=== PATIENT | male | born 1975 | race American Indian/Alaskan Native ===

== ENCOUNTER 2016-12-26 20:27 | Emergency (ER) | payer OTHER ==
[2016-12-26 21:02] VITALS: BP 190/84
[2016-12-26] MEDS ORDERED: Sodium Chloride 0.9% 1,000 ML IV ONE (21:28)
--- NOTE | 2016-12-26 21:29 | EDM.PDOC ---
ED HPI Trauma - General Chief Complaint: Lower Extremity Injury/Pain Stated Complaint: RT ANKLE/FOOT SWELLING/DIABETIC Time Seen by Provider: 12/26/16 21:23 Source: Reports: Patient History Limitations: Reports: No limitations - History of Present Illness INITIAL COMMENTS - FREE TEXT/NARRATIVE: 41 yo [place] Male c/o right lower extremity w/ swelling redness ad pain since Tuesday and Chills yesterday. PMHx. DM Symptom Onset Date: 12/24/16 Symptom Onset Time: 13:00 Occurred Where: home Method of Injury: unknown Severity: moderate Pain/Injury Location: Reports: lower extremity, right Consciousness: Reports: no loss of consciousness Associated Symptoms: Reports: other (chills) Allergies/ADRs: Allergies No Known Allergies Allergy (Verified 12/26/16 20:58) Home Medications: Ambulatory Orders Insulin Glarg,Human.Rec.Analog [LantUS Solostar] 20 units INJECT BEDTIME [Confirmed 12/26/16] atorvaSTATin [Lipitor] 1 tab PO DAILY 05/13/16 [Confirmed 12/26/16] Insulin Aspart [NovoLOG] 20 units SQ TID 12/26/16 [Confirmed 12/26/16] Metoprolol Succinate [Toprol XL] 100 mg PO DAILY 12/26/16 [Confirmed 12/26/16] Past Medical History HEENT History: Reports: None Cardiovascular History: Reports: Cardiomyopathy, High cholesterol, Hypertension , Other (see below) Other Cardiovascular History: hypertrophic cardiomyopathy Respiratory History: Reports: None Gastrointestinal History: Reports: GERD Genitourinary History: Reports: Renal calculus, Other (see below) Other Genitourinary History: "stage 3 kidney disease" Musculoskeletal History: Reports: None Neurological History: Reports: None Psychiatric History: Reports: None Endocrine/Metabolic History: Reports: Diabetes, type II Hematologic History: Reports: None Immunologic History: Reports: None Oncologic (Cancer) History: Reports: None Dermatologic History: Reports: None - Infectious Disease History Infectious Disease History: Reports: Chicken pox - Past Surgical History Head Surgeries/Procedures: Reports: None GI Surgical History: Reports: Cholecystectomy, EGD Male Surgical History: Reports: Circumcision Social & Family History - Tobacco Use Smoking Status *Q: Never Smoker Second Hand Smoke Exposure: No - Recreational Drug Use Recreational Drug Use: No Review of Systems - Review of Systems Review Of Systems: See Below Constitutional: Reports: chills Eyes: Reports: no symptoms Ears: Reports: no symptoms Nose: Reports: no symptoms Mouth/Throat: Reports: no symptoms Respiratory: Reports: No Symptoms Cardiovascular: Reports: no symptoms GI/Abdominal: Reports: No symptoms Genitourinary: Reports: no symptoms Musculoskeletal: Reports: muscle pain (right leg) Skin: Reports: erythema (with swelling and tenderness right leg) Neurological: Reports: No Symptoms Psychiatric: Reports: no symptoms Trauma Exam - Physical Exam Exam: See Below Exam Limited By: No limitations General Appearance: Reports: alert, WD/WN, no apparent distress Head: Reports: atraumatic, normocephalic Eyes: bilateral eye: EOMI Ears: Reports: normal external exam Nose: Reports: normal inspection, normal mucousa Throat/Mouth: Reports: Normal inspection, Normal lips Neck: Reports: non-tender Respiratory Exam: Reports: no respiratory distress, lungs clear, normal breath sounds Cardiovascular: Reports: normal peripheral pulses, regular rate, rhythm GI/Abdominal: Reports: normal bowel sounds, soft Extremities: Reports: no evidence of injury, other (right leg w/ swelling, redness and tenderness) 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, no motor/sensory deficits, alert , normal mood/affect, oriented x 3 Skin: Reports: Warm/dry, Other (erythematous) Course - Vital Signs Last Recorded V/S: Last Vital Signs Temp 36.4 C 12/26/16 20:52 Pulse 80 12/26/16 20:52 Resp 18 12/26/16 20:52 BP 190/84 H 12/26/16 20:52 Pulse Ox 98 12/26/16 20:52 - Orders/Labs/Meds Orders: Active Orders 24 hr Category Date Time Status PE Chest [Ang Chest] [CT] Urgent Exams 12/26/16 22:30 Stop Req CULTURE BLOOD [BC] Stat Lab 12/26/16 21:36 Received GLYCOSYLATED HEMOGLOBIN (HA1C) [REF] Stat Lab 12/26/16 21:31 Received Sodium Chloride 0.9% @ 75 MLS/HR(1000ml) Med 12/26/16 23:00 Ordered Sodium Chloride 0.9% [Normal Saline] 1,000 ml IV ASDIRECTED Medication Orders Sodium Chloride (Normal Saline) 1,000 mls @ 75 mls/hr IV ASDIRECTED JASBIR Labs: Laboratory Tests 12/26/16 12/26/16 12/26/16 Range/Units 21:31 21:31 21:31 WBC 9.4 (5.0-10.0) 10^3/uL RBC 4.27 L (4.6-6.2) 10^6/uL Hgb 12.8 L (14.0-18.0) g/dL Hct 36.6 L (40.0-54.0) % MCV 85.7 (80-100) fL MCH 30.0 (27.0-34.0) pg MCHC 35.0 (33.0-35.0) g/dL Plt Count 247 (150-450) 10^3/uL Neut % (Auto) 61.5 (42.2-75.2) % Lymph % (Auto) 21.8 (20.5-50.1) % [place] % (Auto) 13.3 H (2-8) % Eos % (Auto) 2.9 (1.0-3.0) % Baso % (Auto) 0.5 (0.0-1.0) % ESR 80 H (0-15) mm/hr D-Dimer, Quantitative 2490 H (0-400) ng/mL Sodium 133 L (135-145) mmol/L Potassium 5.4 H (3.6-5.0) mmol/L Chloride 100 L (101-111) mmol/L Carbon Dioxide 26.0 (21.0-31.0) mmol/L Anion Gap 12.4 BUN 37 H (7-18) mg/dL Creatinine 1.5 H (0.6-1.3) mg/dL Est Cr Clr Drug Dosing 85.89 mL/min Estimated GFR (MDRD) 52 BUN/Creatinine Ratio 24.66 Glucose 242 H (74-105) mg/dL Calcium 9.5 (8.4-10.2) mg/dl Total Bilirubin 1.4 H (0.2-1.0) mg/dL AST 27 (10-42) IU/L ALT 19 (10-60) IU/L Alkaline Phosphatase 62 (42-121) IU/L Total Protein 7.4 (6.7-8.2) g/dl Albumin 3.3 (3.2-5.5) g/dl Globulin 4.1 Albumin/Globulin Ratio 0.80 Meds: Medications Generic Name Dose Route Start Last Admin Trade Name Elmer PRN Reason Stop Dose Admin Sodium Chloride 1,000 mls @ 75 mls/hr 12/26/16 23:00 Normal Saline IV ASDIRECTED JASBIR Discontinued Medications Generic Name Dose Route Start Last Admin Trade Name Elmer PRN Reason Stop Dose Admin Sodium Chloride 1,000 mls @ 999 mls/hr 12/26/16 21:28 12/26/16 21:35 Normal Saline IV 12/26/16 22:28 999 mls/hr .BOLUS ONE Administration Cefazolin Sodium/Dextrose 2 gm 50 mls @ 100 mls/hr 12/26/16 22:06 12/26/16 22 :22 / Premix IV 12/26/16 22:35 100 mls/hr ONETIME ONE Administration Iopamidol 100 ml 12/26/16 22:38 Isovue-370 (76%) IVPUSH 12/26/16 22:39 ONETIME ONE Departure - Departure Time of Disposition: 23:03 (Dr. Orlando) Disposition: DC/Tfer to [facility] 02 Condition: good Clinical Impression: Cellulitis of leg without foot, right, Elevated d-dimer, CKD (chronic kidney disease) stage 3, GFR 30-59 ml/min Forms: ED Department Discharge, Interfacility Transfer EMTALA - My Orders Last 24 Hours: My Active Orders 12/26/16 21:31 GLYCOSYLATED HEMOGLOBIN (HA1C) [REF] Stat 12/26/16 21:36 CULTURE BLOOD [BC] Stat 12/26/16 22:30 PE Chest [Ang Chest] [CT] Urgent 12/26/16 23:00 Sodium Chloride 0.9% @ 75 MLS/HR(1000ml) Sodium Chloride 0.9% [Normal Saline] 1 ,000 ml IV ASDIRECTED - Assessment/Plan Last 24 Hours: My Active Orders 12/26/16 21:31 GLYCOSYLATED HEMOGLOBIN (HA1C) [REF] Stat 12/26/16 21:36 CULTURE BLOOD [BC] Stat 12/26/16 22:30 PE Chest [Ang Chest] [CT] Urgent 12/26/16 23:00 Sodium Chloride 0.9% @ 75 MLS/HR(1000ml) Sodium Chloride 0.9% [Normal Saline] 1 ,000 ml IV ASDIRECTED
[2016-12-26] MEDS ORDERED: ceFAZolin 2 GM in Premix Bag 1 BAG IV ONE (22:06)
[2016-12-26] MEDS ORDERED: Iopamidol 755 Mg/ML 100 ML Bottle IVPUSH ONE (22:38)
[2016-12-26] MEDS ORDERED: Sodium Chloride 0.9% 1,000 ML IV SCH (23:00)
--- NOTE | 2016-12-30 20:58 | EKG ---
12/26/2016 - JESSICA WARD - TIME: 2307 hours. I reviewed the EKG and agree with the machine's reading. [facility] /[id number]
== END 2016-12-26 23:34 ==
LOC: DL.ED 20:27
DX: L03.115 Cellulitis of right lower limb (principal); R79.1 Abnormal coagulation profile; I12.9 Hypertensive chronic kidney disease with stage 1 through stage 4 chronic kidney disease, or unspecified chronic kidney disease; E11.22 Type 2 diabetes mellitus with diabetic chronic kidney disease; N18.3 Chronic kidney disease, stage 3 (moderate); Z79.4 Long term (current) use of insulin; K21.9 Gastro-esophageal reflux disease without esophagitis; Z79.899 Other long term (current) drug therapy
CPT/HCPCS: 80053; 83036; 85025; 85379; 85651; 87040; 93005; 96361; 96365; 99284; J0690; J7030; 36415

== ENCOUNTER 2017-02-01 22:23 | Emergency (ER) | payer OTHER ==
[2017-02-01 23:33] VITALS: BP 127/82
--- NOTE | 2017-02-01 23:58 | EDM.PDOC ---
ED HPI GENERAL MEDICAL PROBLEM - General Chief Complaint: General Stated Complaint: TUNNEL PICLINE HURTS AND WONT FLUSH Time Seen by Provider: 02/01/17 23:53 Source of Information: Reports: Patient History Limitations: Reports: No Limitations - History of Present Illness INITIAL COMMENTS - FREE TEXT/NARRATIVE: ED with c/o unable to flush PICC line. Completed IV course and now on oral until determination if infection improved enough to remove PICC line. Diabetic , cellulitis left lower extremity. Admits heavier lifting today moving treadmill. Left Arm Pain Score (Numeric/FACES): 4 - Related Data Allergies Allergy/AdvReac Type Severity Reaction Status Date / Time No Known Allergies Allergy Verified 02/01/17 23:26 Home Meds: Home Meds Insulin Glarg,Human.Rec.Analog [LantUS Solostar] 25 units INJECT BEDTIME [History] Insulin Aspart [NovoLOG] 22 units SQ TID 12/26/16 [History] Metoprolol Succinate [Toprol XL] 100 mg PO DAILY 12/26/16 [History] Past Medical History HEENT History: Reports: None Cardiovascular History: Reports: Cardiomyopathy, High Cholesterol, Hypertension , Other (See Below) Other Cardiovascular History: hypertrophic cardiomyopathy Respiratory History: Reports: None Gastrointestinal History: Reports: GERD Genitourinary History: Reports: Renal Calculus, Other (See Below) Other Genitourinary History: "stage 3 kidney disease" Musculoskeletal History: Reports: None Neurological History: Reports: None Psychiatric History: Reports: None Endocrine/Metabolic History: Reports: Diabetes, Type II Hematologic History: Reports: None Immunologic History: Reports: None Oncologic (Cancer) History: Reports: None Dermatologic History: Reports: None - Infectious Disease History Infectious Disease History: Reports: Chicken Pox - Past Surgical History Head Surgeries/Procedures: Reports: None GI Surgical History: Reports: Cholecystectomy, EGD Social & Family History - Tobacco Use Smoking Status *Q: Unknown Ever Smoked Second Hand Smoke Exposure: No - Caffeine Use Caffeine Use: Reports: Coffee - Recreational Drug Use Recreational Drug Use: No ED ROS GENERAL - Review of Systems Review Of Systems: ROS reveals no pertinent complaints other than HPI. ED EXAM, GENERAL - Physical Exam Exam: See Below Exam Limited By: No Limitations General Appearance: Alert, No Apparent Distress Respiratory/Chest: No Respiratory Distress, Lungs Clear, Normal Breath Sounds Cardiovascular: Normal Peripheral Pulses, Regular Rate, Rhythm Neurological: Alert, Oriented, Normal Cognition, Normal Gait Course - Vital Signs Last Recorded V/S: Last Vital Signs Temp 98.0 F 02/01/17 23:29 Pulse 81 02/01/17 23:29 Resp 20 02/01/17 23:29 BP 127/82 02/01/17 23:29 Pulse Ox 98 02/01/17 23:29 - Re-Assessments/Exams Free Text/Narrative Re-Assessment/Exam: Nursing able to flush PICC line with ease. Dressing and line intact left subclavian. Departure - Departure Time of Disposition: 23:56 Disposition: Home, Self-Care 01 Condition: good Clinical Impression: PICC (peripherally inserted central catheter) in place - Discharge Information Instructions: PICC Home Guide Forms: ED Department Discharge Additional Instructions: follow up as needed no heavy lifting
== END 2017-02-02 00:05 | disposition home or self-care (01) ==
LOC: DL.ED 22:23
DX: Z45.2 Encounter for adjustment and management of vascular access device (principal)
CPT/HCPCS: 99283

== ENCOUNTER 2017-02-04 16:48 | Emergency (ER) | payer OTHER ==
[2017-02-04] MEDS ORDERED: Sodium Chloride 0.9% 10 ML Syringe FLUSH PRN (17:20)
[2017-02-04] MEDS ORDERED: Aspirin 81 MG Tab.Chew PO ONE (17:21)
[2017-02-04] MEDS ORDERED: GI Cocktail Oral Solution 30 ML PO ONE (17:22)
--- NOTE | 2017-02-04 17:29 | EDM.PDOC ---
{null, ED HPI GENERAL MEDICAL PROBLEM - General Chief Complaint: Cardiovascular Problem Stated Complaint: BP HIGH Time Seen by Provider: 02/04/17 17:15 Source of Information: Reports: Patient History Limitations: Reports: No Limitations - History of Present Illness INITIAL COMMENTS - FREE TEXT/NARRATIVE: patient comes emergency Department today with complaints of chest pressure that is midsternal and goes into his back that has been going on for the past 2-3 hours. He did note this morning that he was diaphoretic for no reason. While he was at the gym this evening and developed this chest pressure they checked his blood pressure and noted that it was quite elevated systolically in the 190s. The pain in his chest feels like bloating burping sensation and indigestion that he has had in the past. He denies any shortness of breath cough or chest congestion. He denies any fever or chills. Denies any abdominal pain nausea or vomiting. He does have a cellulitis of the right lower extremity which he has been receiving outpatient IV antibiotic therapy and has recently switched over to oral antibiotics for the cellulitis is much improved. He does note that his left lower ankle is more swollen than it typically has been. He does have a history of hypertrophic cardiomyopathy as well as diabetes. - Related Data Allergies Allergy/AdvReac Type Severity Reaction Status Date / Time No Known Allergies Allergy Verified 02/04/17 17:16 Home Meds: Home Meds Insulin Glarg,Human.Rec.Analog [LantUS Solostar] 25 units INJECT BEDTIME [History] Insulin Aspart [NovoLOG] 22 units SQ TID 12/26/16 [History] Metoprolol Succinate [Toprol XL] 100 mg PO DAILY 12/26/16 [History] Losartan/Hydrochlorothiazide [Losartan-HCTZ 100-25 MG] 1 each PO DAILY 02/04/17 [History] Ranitidine [Zantac] 150 mg PO BID 02/04/17 [History] atorvaSTATin [Lipitor] 20 mg PO BEDTIME 02/04/17 [History] Past Medical History HEENT History: Reports: None Cardiovascular History: Reports: Cardiomyopathy, High Cholesterol, Hypertension , Other (See Below) Other Cardiovascular History: hypertrophic cardiomyopathy Respiratory History: Reports: None Gastrointestinal History: Reports: GERD Genitourinary History: Reports: Renal Calculus, Other (See Below) Other Genitourinary History: "stage 3 kidney disease" Musculoskeletal History: Reports: None Neurological History: Reports: None Psychiatric History: Reports: None Endocrine/Metabolic History: Reports: Diabetes, Type II Hematologic History: Reports: None Immunologic History: Reports: None Oncologic (Cancer) History: Reports: None Dermatologic History: Reports: None - Infectious Disease History Infectious Disease History: Reports: Chicken Pox - Past Surgical History Head Surgeries/Procedures: Reports: None GI Surgical History: Reports: Cholecystectomy, EGD Social & Family History - Tobacco Use Smoking Status *Q: Never Smoker Second Hand Smoke Exposure: No - Caffeine Use Caffeine Use: Reports: Coffee - Recreational Drug Use Recreational Drug Use: No ED ROS GENERAL - Review of Systems Review Of Systems: ROS reveals no pertinent complaints other than HPI. ED EXAM, GENERAL - Physical Exam Exam: See Below Exam Limited By: Altered Mental Status General Appearance: Alert, WD/WN, No Apparent Distress Ears: Normal External Exam, Normal Canal, Hearing Grossly Normal, Normal TMs Nose: Normal Inspection, Normal Mucosa, No Blood Throat/Mouth: Normal Inspection, Normal Lips, Normal Oropharynx Head: Atraumatic, Normocephalic Neck: Normal Inspection, Supple, Non-Tender Respiratory/Chest: No Respiratory Distress, Lungs Clear, Normal Breath Sounds, No Accessory Muscle Use Cardiovascular: Normal Peripheral Pulses, Regular Rate, Rhythm, No JVD, No Murmur Peripheral Pulses: 2+: Radial (L), Radial (R), Posterior Tibial (L), Posterior Tibial (R), Dorsalis Pedis (L), Dorsalis Pedis (R) GI/Abdominal: Normal Bowel Sounds, Soft, Non-Tender, No Distention, No Abnormal Bruit (Male) Exam: Deferred Rectal (Males) Exam: Deferred Back Exam: Normal Inspection Extremities: Normal Inspection, Normal Range of Motion, Non-Tender, Normal Capillary Refill, Pedal Edema (Left extremity lower 1+ pitting edema. 2+ pitting edema to the right lower extremity.). No: Rd's Sign, Leg Pain, Increased Warmth Neurological: Alert, CN II-XII Intact, Normal Cognition, Normal Reflexes, No Motor/Sensory Deficits Psychiatric: Normal Affect Skin Exam: Warm, Dry, Intact, Normal Color Lymphatic: No Adenopathy EKG INTERPRETATION EKG Date: 02/04/17 Time: 17:14 Rhythm: NSR Rate (beats/min): 68 [place]: normal P-wave: present QRS: LBBB ST-T: normal QT: normal Comparison: no change Course - Vital Signs Last Recorded V/S: Last Vital Signs Temp 36.8 C 02/04/17 20:22 Pulse 69 02/04/17 20:22 Resp 16 02/04/17 20:22 BP 163/90 H 02/04/17 20:22 Pulse Ox 98 02/04/17 20:22 Vital Signs 02/04/17 02/04/17 02/04/17 17:17 18:28 19:36 Temperature [ 36.3 C 36.5 C 36.8 C Temporal] Pulse, 68 70 66 Peripheral [ Apical] Respiratory 18 15 16 Rate Blood Pressure 186/96 H 149/97 H 167/91 H [Right Upper Arm] O2 Sat by Pulse 99 100 100 Oximetry 02/04/17 02/04/17 02/04/17 19:50 20:03 20:22 Temperature [ 36.8 C 36.8 C 36.8 C Temporal] Pulse, 65 65 69 Peripheral [ Apical] Respiratory 16 16 16 Rate Blood Pressure 168/92 H 165/91 H 163/90 H [Right Upper Arm] O2 Sat by Pulse 99 98 98 Oximetry - Orders/Labs/Meds Orders: Active Orders 24 hr Category Date Time Status EKG 12 Lead [EKG Documentation Completion] [RC] URGENT Care 02/04/17 17:20 Active Peripheral IV Care [RC] . DIRECTED Care 02/04/17 17:20 Active TROPONIN I [CHEM] Stat Lab 02/04/17 20:25 Received Sodium Chloride 0.9% [Saline Flush] Med 02/04/17 17:20 Active 10 ml FLUSH ASDIRECTED PRN Peripheral IV Insertion Adult [OM.PC] Stat Oth 02/04/17 17:20 Ordered Medication Orders Sodium Chloride (Saline Flush) 10 ml FLUSH ASDIRECTED PRN PRN Reason: Keep Vein Open Last Admin: 02/04/17 17:28 Dose: 10 ml Labs: Laboratory Tests 02/04/17 02/04/17 Range/Units 17:12 17:12 WBC 7.7 (5.0-10.0) 10^3/uL RBC 4.29 L (4.6-6.2) 10^6/uL Hgb 12.9 L (14.0-18.0) g/dL Hct 38.3 L (40.0-54.0) % MCV 89.3 (80-100) fL MCH 30.1 (27.0-34.0) pg MCHC 33.7 (33.0-35.0) g/dL Plt Count 364 (150-450) 10^3/uL Neut % (Auto) 56.5 (42.2-75.2) % Lymph % (Auto) 28.1 (20.5-50.1) % [place] % (Auto) 11.2 H (2-8) % Eos % (Auto) 3.3 H (1.0-3.0) % Baso % (Auto) 0.9 (0.0-1.0) % Sodium 132 L (135-145) mmol/L Potassium 4.8 (3.6-5.0) mmol/L Chloride 100 L (101-111) mmol/L Carbon Dioxide 26.0 (21.0-31.0) mmol/L Anion Gap 10.8 BUN 29 H (7-18) mg/dL Creatinine 1.6 H (0.6-1.3) mg/dL Est Cr Clr Drug Dosing 80.52 mL/min Estimated GFR (MDRD) 48 BUN/Creatinine Ratio 18.12 Glucose 137 H (74-105) mg/dL Calcium 9.3 (8.4-10.2) mg/dl Total Bilirubin 0.7 (0.2-1.0) mg/dL AST 30 (10-42) IU/L ALT 51 (10-60) IU/L Alkaline Phosphatase 97 (42-121) IU/L Troponin I 0.02 (0.00-0.02) ng/ml B-Natriuretic Peptide 174 H (0-100) pg/ml Total Protein 7.7 (6.7-8.2) g/dl Albumin 3.6 (3.2-5.5) g/dl Globulin 4.1 Albumin/Globulin Ratio 0.88 Meds: Medications Generic Name Dose Route Start Last Admin Trade Name Freq PRN Reason Stop Dose Admin Sodium Chloride 10 ml 02/04/17 17:20 02/04/17 17:28 Saline Flush FLUSH 10 ml ASDIRECTED PRN Administration Keep Vein Open Discontinued Medications Generic Name Dose Route Start Last Admin Trade Name Freq PRN Reason Stop Dose Admin Al Hydroxide/Mg Hydroxide 30 ml 02/04/17 17:22 02/04/17 17:28 Gi Cocktail PO 02/04/17 17:23 30 ml ONETIME ONE Administration Aspirin 324 mg 02/04/17 17:21 02/04/17 17:27 Aspirin PO 02/04/17 17:22 324 mg ONETIME ONE Administration - Radiology Interpretation Free Text/Narrative:: Chest x-ray unremarkable per radiology although there is a loop in the left subclavian central line. - Re-Assessments/Exams Free Text/Narrative Re-Assessment/Exam: 02/04/17 324 of oral aspirin chewable given upon arrival. GI cocktail with complete resolution of symptoms. I relayed to the patient that the findings of his EKG are unchanged from previous and his chest x-ray is unremarkable as well other than the loop in the central line which he is planning to have removed his primary care office earlier next week. At this time his troponin is normal as well as his pro BNP. He continues to tell me that he does have a kind of dry hacking cough over the past couple months it is noted primarily more on the days when he ends up with heartburn or indigestion. He does use [id number] antacids such as TUMS 2- 3 times a week for indigestion. I did explain to him that it appears most likely that this is indigestion or heartburn at this time with resolution with a GI cocktail although with his rather extensive comorbid past history and his pain is limiting going on for a short period of time I believe that a repeat troponin would be most appropriate at this time to ensure that this is not a cardiac event. He was agreeable to this. He was observed on the inpatient floor has an extended emergency department by the nursing staff. He rested comfortably without any chest pain shortness of breath or any complaints whatsoever. Repeat troponin was 0.02 which was the same as his initial troponin. We will use [id number] antacids for acute relief of indigestion and Prilosec short course as well. Discharge instructions as below were explained to the patient he is comfortable with this plan and his questions were answered Departure - Departure Time of Disposition: 21:09 Disposition: Home, Self-Care 01 Clinical Impression: GERD (gastroesophageal reflux disease) Qualifiers: Esophagitis presence: esophagitis presence not specified Qualified Code(s): K21.9 - Gastro-esophageal reflux disease without esophagitis Instructions: Gastroesophageal Reflux Disease, Adult, [id number] Forms: ED Department Discharge Additional Instructions: OTC antacids such as Maalox Mylanta Tums or Pepcid as needed for indigestion. If indigestion/Chest pressure you were having today does not resolve rapidly with OTC antacids as above seed emergent medical evaluation. Prilosec 1 capsule a day for 14 days. Return to the ED if new or worsening symptoms. Recheck primary care in the next 4-6 days. - My Orders Last 24 Hours: My Active Orders 02/04/17 17:20 EKG 12 Lead [EKG Documentation Completion] [RC] URGENT Peripheral IV Care [RC] . DIRECTED Sodium Chloride 0.9% [Saline Flush] 10 ml FLUSH ASDIRECTED PRN Peripheral IV Insertion Adult [OM.PC] Stat 02/04/17 20:25 TROPONIN I [CHEM] Stat - Assessment/Plan Last 24 Hours: My Active Orders 02/04/17 17:20 EKG 12 Lead [EKG Documentation Completion] [RC] URGENT Peripheral IV Care [RC] . DIRECTED Sodium Chloride 0.9% [Saline Flush] 10 ml FLUSH ASDIRECTED PRN Peripheral IV Insertion Adult [OM.PC] Stat 02/04/17 20:25 TROPONIN I [CHEM] Stat Assessment:: Chest pain negative cardiac workup. GERD. Plan: OTC antacids such as Maalox Mylanta Tums or Pepcid as needed for indigestion. If indigestion/Chest pressure you were having today does not resolve rapidly with OTC antacids as above seed emergent medical evaluation. Prilosec 1 capsule a day for 14 days. Return to the ED if new or worsening symptoms. Recheck primary care in the next 4-6 days. }
[2017-02-04 20:23] VITALS: BP 163/90
--- NOTE | 2017-02-08 11:12 | EKG ---
{null, 02/04/2017 - JESSICA WARD - 12-lead EKG shows normal sinus rhythm with no significant ST elevation or ST depression noted on this 12-lead EKG. Left bundle-branch block noted. Nonspecific ST changes noted on lead V2, V3. [facility] /[id number] }
== END 2017-02-04 21:28 | disposition home or self-care (01) ==
LOC: DL.ED 16:48
DX: K21.9 Gastro-esophageal reflux disease without esophagitis (principal); E78.00 Pure hypercholesterolemia, unspecified; E11.9 Type 2 diabetes mellitus without complications; I12.9 Hypertensive chronic kidney disease with stage 1 through stage 4 chronic kidney disease, or unspecified chronic kidney disease; N18.3 Chronic kidney disease, stage 3 (moderate); Z90.49 Acquired absence of other specified parts of digestive tract; Z79.4 Long term (current) use of insulin; Z79.899 Other long term (current) drug therapy
CPT/HCPCS: 36415; 71020; 80053; 83880; 84484; 85025; 93005; 99285; A9270; J7050

== ENCOUNTER 2017-04-05 00:49 | Emergency (ER) | payer OTHER ==
[2017-04-05] MEDS ORDERED: Aspirin 81 MG Tab.Chew PO ONE (01:08)
[2017-04-05] MEDS ORDERED: Albuterol 0.083% 2.5 MG/3 ML Neb Soln NEB ONE (01:09)
--- NOTE | 2017-04-05 01:32 | EDM.PDOC ---
ED HPI GENERAL MEDICAL PROBLEM - General Chief Complaint: Chest Pain Stated Complaint: TIGHTNESS IN CHEST, TROUBLE BREATHING Time Seen by Provider: 04/05/17 01:01 Source of Information: Reports: Patient History Limitations: Reports: No Limitations - History of Present Illness INITIAL COMMENTS - FREE TEXT/NARRATIVE: ED with c/o SOB starting suddenly at 2350 tonight. No pain, No recent URI, Non smoker, Traveling yesterday 3-4 without getting out of car, notes increased Onset: Today, Sudden Onset Time: 23:50 Improves with: Reports: Other (sitting up right) - Related Data Allergies Allergy/AdvReac Type Severity Reaction Status Date / Time No Known Allergies Allergy Verified 04/05/17 01:02 Home Meds: Home Meds Insulin Glarg,Human.Rec.Analog [LantUS Solostar] 25 units INJECT BEDTIME [History] Insulin Aspart [NovoLOG] 22 units SQ TID 12/26/16 [History] Metoprolol Succinate [Toprol XL] 100 mg PO DAILY 12/26/16 [History] Losartan/Hydrochlorothiazide [Losartan-HCTZ 100-25 MG] 1 each PO DAILY 02/04/17 [History] Ranitidine [Zantac] 150 mg PO BID 02/04/17 [History] atorvaSTATin [Lipitor] 20 mg PO BEDTIME 02/04/17 [History] Past Medical History HEENT History: Reports: None Cardiovascular History: Reports: Cardiomyopathy, High Cholesterol, Hypertension , Other (See Below) Other Cardiovascular History: hypertrophic cardiomyopathy Respiratory History: Reports: None Gastrointestinal History: Reports: GERD Genitourinary History: Reports: Renal Calculus, Other (See Below) Other Genitourinary History: "stage 3 kidney disease" Musculoskeletal History: Reports: None Neurological History: Reports: None Psychiatric History: Reports: None Endocrine/Metabolic History: Reports: Diabetes, Type II Hematologic History: Reports: None Immunologic History: Reports: None Oncologic (Cancer) History: Reports: None Dermatologic History: Reports: None - Infectious Disease History Infectious Disease History: Reports: Chicken Pox - Past Surgical History Head Surgeries/Procedures: Reports: None GI Surgical History: Reports: Cholecystectomy, EGD Social & Family History - Tobacco Use Smoking Status *Q: Never Smoker Second Hand Smoke Exposure: No - Caffeine Use Caffeine Use: Reports: Coffee - Recreational Drug Use Recreational Drug Use: No ED ROS GENERAL - Review of Systems Review Of Systems: See Below Constitutional: Denies: Fever, Chills, Weakness HEENT: Reports: No Symptoms, Glasses Respiratory: Reports: Shortness of Breath. Denies: Wheezing, Pleuritic Chest Pain, Cough Cardiovascular: Reports: Dyspnea on Exertion, Orthopnea Endocrine: Reports: No Symptoms GI/Abdominal: Reports: No Symptoms Musculoskeletal: Reports: Other (right leg appears more swollen tonight- hx cellulitis) Neurological: Reports: No Symptoms Psychiatric: Reports: No Symptoms ED EXAM, GENERAL - Physical Exam Exam: See Below Exam Limited By: No Limitations General Appearance: Alert, Anxious, Mild Distress, Obese Eye Exam: Bilateral Eye: EOMI Ears: Normal External Exam Nose: Normal Inspection Throat/Mouth: Normal Inspection Head: Atraumatic, Normocephalic Neck: Normal Inspection, Full Range of Motion Respiratory/Chest: Chest Non-Tender, Respiratory Distress (mild), Decreased Breath Sounds (right), Other (sats 92%RA on arrival). No: Rhonchi, Wheezing Cardiovascular: Normal Peripheral Pulses, Regular Rate, Rhythm GI/Abdominal: Normal Bowel Sounds, Soft (round) Back Exam: Normal Inspection Extremities: Other (edema lower right). No: Rd's Sign, Increased Warmth Neurological: Alert, Oriented, Normal Cognition, Normal Gait Psychiatric: Normal Affect Skin Exam: Warm, Dry, Intact, Normal Color. No: Erythema Course - Vital Signs Last Recorded V/S: Last Vital Signs Temp 97.5 F 04/05/17 01:02 Pulse 78 04/05/17 01:02 Resp 16 04/05/17 01:02 BP 120/71 04/05/17 01:57 Pulse Ox 93 L 04/05/17 01:06 - Orders/Labs/Meds Orders: Active Orders 24 hr Category Date Time Status EKG Documentation Completion [RC] URGENT Care 04/05/17 00:56 Active RT Aerosol Therapy [RC] ASDIRECTED Care 04/05/17 01:10 Active Labs: Laboratory Tests 04/05/17 04/05/17 04/05/17 Range/Units 01:00 01:00 01:00 WBC 9.0 (5.0-10.0) 10^3/uL RBC 4.23 L (4.6-6.2) 10^6/uL Hgb 12.8 L (14.0-18.0) g/dL Hct 38.1 L (40.0-54.0) % MCV 90.1 (80-100) fL MCH 30.3 (27.0-34.0) pg MCHC 33.6 (33.0-35.0) g/dL Plt Count 333 (150-450) 10^3/uL Neut % (Auto) 60.3 (42.2-75.2) % Lymph % (Auto) 25.1 (20.5-50.1) % Gaston % (Auto) 9.7 H (2-8) % Eos % (Auto) 4.2 H (1.0-3.0) % Baso % (Auto) 0.7 (0.0-1.0) % PT (9.0-12.0) SEC INR (0.9-1.2) D-Dimer, Quantitative 2600 H (0-400) ng/mL Sodium 140 (135-145) mmol/L Potassium 4.9 (3.6-5.0) mmol/L Chloride 105 (101-111) mmol/L Carbon Dioxide 27.0 (21.0-31.0) mmol/L Anion Gap 12.9 BUN 37 H (7-18) mg/dL Creatinine 1.6 H (0.6-1.3) mg/dL Est Cr Clr Drug Dosing 80.52 mL/min Estimated GFR (MDRD) 48 BUN/Creatinine Ratio 23.12 Glucose 133 H (74-105) mg/dL Calcium 9.2 (8.4-10.2) mg/dl Total Bilirubin 0.7 (0.2-1.0) mg/dL AST 34 (10-42) IU/L ALT 55 (10-60) IU/L Alkaline Phosphatase 106 (42-121) IU/L CK-MB (CK-2) (0.4-4.7) ng/mL Troponin I 0.03 H* (0.00-0.02) ng/ml B-Natriuretic Peptide 147 H (0-100) pg/ml Total Protein 7.4 (6.7-8.2) g/dl Albumin 3.5 (3.2-5.5) g/dl Globulin 3.9 Albumin/Globulin Ratio 0.90 Amylase 44 (28-100) U/L Lipase 42 (22-51) U/L 04/05/17 04/05/17 Range/Units 01:00 01:00 WBC (5.0-10.0) 10^3/uL RBC (4.6-6.2) 10^6/uL Hgb (14.0-18.0) g/dL Hct (40.0-54.0) % MCV (80-100) fL MCH (27.0-34.0) pg MCHC (33.0-35.0) g/dL Plt Count (150-450) 10^3/uL Neut % (Auto) (42.2-75.2) % Lymph % (Auto) (20.5-50.1) % Gaston % (Auto) (2-8) % Eos % (Auto) (1.0-3.0) % Baso % (Auto) (0.0-1.0) % PT 9.3 (9.0-12.0) SEC INR 0.9 (0.9-1.2) D-Dimer, Quantitative (0-400) ng/mL Sodium (135-145) mmol/L Potassium (3.6-5.0) mmol/L Chloride (101-111) mmol/L Carbon Dioxide (21.0-31.0) mmol/L Anion Gap BUN (7-18) mg/dL Creatinine (0.6-1.3) mg/dL Est Cr Clr Drug Dosing mL/min Estimated GFR (MDRD) BUN/Creatinine Ratio Glucose (74-105) mg/dL Calcium (8.4-10.2) mg/dl Total Bilirubin (0.2-1.0) mg/dL AST (10-42) IU/L ALT (10-60) IU/L Alkaline Phosphatase (42-121) IU/L CK-MB (CK-2) 10.90 H (0.4-4.7) ng/mL Troponin I (0.00-0.02) ng/ml B-Natriuretic Peptide (0-100) pg/ml Total Protein (6.7-8.2) g/dl Albumin (3.2-5.5) g/dl Globulin Albumin/Globulin Ratio Amylase (28-100) U/L Lipase (22-51) U/L Meds: Medications Discontinued Medications Generic Name Dose Route Start Last Admin Trade Name Freq PRN Reason Stop Dose Admin Albuterol 2.5 mg 04/05/17 01:09 04/05/17 01:12 Proventil Neb Soln NEB 04/05/17 01:10 2.5 mg ONETIME ONE Administration Aspirin 324 mg 04/05/17 01:08 04/05/17 01:10 Aspirin PO 04/05/17 01:09 324 mg ONETIME ONE Administration Heparin Sodium (Porcine) 5,000 units 04/05/17 01:46 04/05/17 01:59 Heparin Sodium IVPUSH 04/05/17 01:47 5,000 units ONETIME ONE Administration Heparin Sodium/Dextrose 25,000 units in 500 mls @ 35.925 mls/hr 04/05/17 02: 00 04/05/17 02:01 Heparin 25,000 Units In D5w 500 Ml IV 12 units/kg/hr TITRATE JASBIR 35.925 mls/hr Protocol Administration 12 UNITS/KG/HR Nitroglycerin 0.4 mg 04/05/17 01:42 04/05/17 01:44 Nitrostat SL 04/05/17 01:43 0.4 mg ONETIME ONE Administration Nitroglycerin Confirm 04/05/17 01:43 04/05/17 01:57 Nitrostat Administered 04/05/17 01:44 Not Given Dose 0.4 mg .ROUTE .[facility] ONE - Radiology Interpretation Free Text/Narrative:: CXR: Normal - Re-Assessments/Exams Free Text/Narrative Re-Assessment/Exam: 04/05/17 02:06 O2 sats dropping, oxygen per cannula increased. Labs returned with elevated Troponin and D-dimer. Heparin initiated. Patient c/o lower bilateral rib and back pain. Nitro x1 given with complete relief of pain. TC consult Dr. Franco, accepting of patient for further evaluation and mangement. Tx via [facility]. Departure - Departure Time of Disposition: 02:15 Disposition: DC/Tfer to Acute Hospital 02 Condition: Undetermined Clinical Impression: D-dimer, elevated, NSTEMI (non-ST elevated myocardial infarction), CKD ( chronic kidney disease) stage 3, GFR 30-59 ml/min Diabetes Qualifiers: Diabetes mellitus type: type 2 Diabetes mellitus complication status: with unspecified complications Diabetes mellitus long term care pharmacist insulin use: unspecified long term care pharmacist insulin use status Qualified Code(s): E11.8 - Type 2 diabetes mellitus with unspecified complications - Discharge Information Referrals: PCP,Unobtain [Primary Care Provider] - Forms: ED Department Discharge - My Orders Last 24 Hours: My Active Orders 04/05/17 00:56 EKG Documentation Completion [RC] URGENT 04/05/17 01:10 RT Aerosol Therapy [RC] ASDIRECTED - Assessment/Plan Last 24 Hours: My Active Orders 04/05/17 00:56 EKG Documentation Completion [RC] URGENT 04/05/17 01:10 RT Aerosol Therapy [RC] ASDIRECTED
[2017-04-05] MEDS ORDERED: Nitroglycerin 0.4 MG Tab.SL SL ONE (01:42)
[2017-04-05] MEDS ORDERED: Nitroglycerin 0.4 MG Tab.SL ONE (01:43)
[2017-04-05] MEDS ORDERED: Heparin Sodium 5,000 Units/ML Vial IVPUSH ONE (01:46)
[2017-04-05 01:57] VITALS: BP 120/71
[2017-04-05] MEDS ORDERED: Heparin Sodium/D5W 25,000 UNITS/500 ML BAG IV SCH (02:00)
--- NOTE | 2017-04-05 19:03 | EKG ---
04/05/2017 - JESSICA WARD I have reviewed the EKG and agree with the machine's reading. [facility] /[id number]
== END 2017-04-05 02:40 ==
LOC: DL.ED 00:49
DX: I21.4 Non-ST elevation (NSTEMI) myocardial infarction (principal); R79.89 Other specified abnormal findings of blood chemistry; E11.22 Type 2 diabetes mellitus with diabetic chronic kidney disease; I12.9 Hypertensive chronic kidney disease with stage 1 through stage 4 chronic kidney disease, or unspecified chronic kidney disease; N18.3 Chronic kidney disease, stage 3 (moderate); K21.9 Gastro-esophageal reflux disease without esophagitis; E78.00 Pure hypercholesterolemia, unspecified; Z79.4 Long term (current) use of insulin; Z90.49 Acquired absence of other specified parts of digestive tract; Z79.899 Other long term (current) drug therapy
CPT/HCPCS: 36415; 71010; 80053; 82150; 82553; 83690; 83880; 84484; 85025; 85379; 85610; 93005; 96365; 96376; 99285; A9270; J1644; J7620

== ENCOUNTER 2017-05-06 16:23 | Inpatient (IN) | payer OTHER ==
[2017-05-06] MEDS ORDERED: Vancomycin 1.75 GM in Sodium Chloride 0.9% 500 ML IV ONE (18:03)
--- NOTE | 2017-05-06 18:14 | EDM.PDOC ---
ED HPI GENERAL MEDICAL PROBLEM - General Chief Complaint: Lower Extremity Injury/Pain Stated Complaint: HX OF BAD INFECTIONS, ANKLE INFECTED, [id number] Time Seen by Provider: 05/06/17 17:30 Source of Information: Reports: Patient History Limitations: Reports: No Limitations - History of Present Illness INITIAL COMMENTS - FREE TEXT/NARRATIVE: This 41 yo male patient reports to the ED with increased pain, swelling and redness on a wound on his right medial maleolus. The patient reports he was seen by podiatry 4 days ago and was supposed to start on Augmentin. The patient took the first dose this this afternoon, but he has been feeling worse throughout the day. The patient has a past history of diabetes, cardiac issues, kidney failure and numerous infections in his ankle. Onset: Today, Gradual Duration: Constant, Getting Worse Location: Reports: Lower Extremity, Right Quality: Reports: Ache, Dull Severity: Moderate Improves with: Reports: None Worsens with: Reports: None Associated Symptoms: Reports: No Other Symptoms Generalized Pain Score (Numeric/FACES): 8 - Related Data Allergies Allergy/AdvReac Type Severity Reaction Status Date / Time cefepime Allergy Liver Verified 05/06/17 18:35 Problems Home Meds: Home Meds Insulin Glarg,Human.Rec.Analog [LantUS Solostar] 25 units INJECT BEDTIME [History] Insulin Aspart [NovoLOG] 22 units SQ TID 12/26/16 [History] Metoprolol Succinate [Toprol XL] 100 mg PO DAILY 12/26/16 [History] Losartan/Hydrochlorothiazide [Losartan-HCTZ 100-25 MG] 1 each PO DAILY 02/04/17 [History] Ranitidine [Zantac] 150 mg PO BID 02/04/17 [History] atorvaSTATin [Lipitor] 20 mg PO BEDTIME 02/04/17 [History] Allopurinol [Zyloprim] 100 mg PO DAILY 05/06/17 [History] Amoxicillin/Clavulanate K [Augmentin 875 MG/125 MG] 1 mg PO BID 05/06/17 [ History] Spironolactone [Aldactone] 12.5 mg PO DAILY 05/06/17 [History] Past Medical History HEENT History: Reports: None Cardiovascular History: Reports: Cardiomyopathy, High Cholesterol, Hypertension , Other (See Below) Other Cardiovascular History: hypertrophic cardiomyopathy Respiratory History: Reports: None Gastrointestinal History: Reports: GERD Genitourinary History: Reports: Renal Calculus, Other (See Below) Other Genitourinary History: "stage 3 kidney disease" Musculoskeletal History: Reports: Gout, Osteoarthritis Neurological History: Reports: None Psychiatric History: Reports: None Endocrine/Metabolic History: Reports: Diabetes, Type II Hematologic History: Reports: None Immunologic History: Reports: None Oncologic (Cancer) History: Reports: None Dermatologic History: Reports: None - Infectious Disease History Infectious Disease History: Reports: Chicken Pox, MRSA - Past Surgical History Head Surgeries/Procedures: Reports: None GI Surgical History: Reports: Cholecystectomy, EGD Social & Family History - Family History Family Medical History: Noncontributory - Tobacco Use Smoking Status *Q: Never Smoker Second Hand Smoke Exposure: No - Caffeine Use Caffeine Use: Reports: Coffee - Recreational Drug Use Recreational Drug Use: No Review of Systems - Review of Systems Review Of Systems: ROS reveals no pertinent complaints other than HPI. ED EXAM, GENERAL - Physical Exam Exam: See Below Exam Limited By: No Limitations General Appearance: Alert, WD/WN, Moderate Distress Eye Exam: Bilateral Eye: EOMI, Normal Inspection, PERRL Ears: Normal External Exam, Normal Canal, Hearing Grossly Normal, Normal TMs Nose: Normal Inspection, Normal Mucosa, No Blood Throat/Mouth: Normal Inspection, Normal Lips, Normal Teeth, Normal Gums, Normal Oropharynx, Normal Voice, No Airway Compromise Head: Atraumatic, Normocephalic Neck: Normal Inspection, Supple, Non-Tender, Full Range of Motion Respiratory/Chest: No Respiratory Distress, Lungs Clear, Normal Breath Sounds, No Accessory Muscle Use, Chest Non-Tender Cardiovascular: Normal Peripheral Pulses, Regular Rate, Rhythm, No Edema, No Gallop, No JVD, No Murmur, No Rub GI/Abdominal: Normal Bowel Sounds, Soft, Non-Tender, No Organomegaly, No Distention, No Abnormal Bruit, No Mass (Male) Exam: Deferred Rectal (Males) Exam: Deferred Back Exam: Normal Inspection, Full Range of Motion, NT Extremities: Redness (right medial maleoli) Neurological: Alert, Oriented, CN II-XII Intact, Normal Cognition, Normal Gait, Normal Reflexes, No Motor/Sensory Deficits Psychiatric: Normal Affect, Normal Mood Skin Exam: Erythema, Wound/Incision Lymphatic: No Adenopathy Course - Vital Signs Last Recorded V/S: Last Vital Signs Temp 38.2 C H 05/06/17 18:52 Pulse 87 05/06/17 18:52 Resp 20 05/06/17 18:52 BP 155/85 H 05/06/17 18:52 Pulse Ox 97 05/06/17 18:52 - Orders/Labs/Meds Orders: Active Orders 24 hr Category Date Time Status CULTURE BLOOD [BC] Stat Lab 05/06/17 17:07 Received CULTURE BLOOD [BC] Stat Lab 05/06/17 17:11 Received Vancomycin 1.75 gm Med 05/06/17 18:03 Ordered Sodium Chloride 0.9% [Normal Saline] 500 ml IV ONETIME Blood Culture x2 Reflex Set [OM.PC] Stat Oth 05/06/17 16:57 Ordered Medication Orders Vancomycin HCl 1.75 gm/ Sodium (Chloride) 500 mls @ 250 mls/hr IV ONETIME ONE Stop: 05/06/17 20:02 Last Admin: 05/06/17 18:14 Dose: 334 mls/hr Labs: Laboratory Tests 05/06/17 05/06/17 05/06/17 Range/Units 16:47 17:07 17:07 WBC 8.2 (5.0-10.0) 10^3/uL RBC 4.22 L (4.6-6.2) 10^6/uL Hgb 12.6 L (14.0-18.0) g/dL Hct 37.2 L (40.0-54.0) % MCV 88.2 (80-100) fL MCH 29.9 (27.0-34.0) pg MCHC 33.9 (33.0-35.0) g/dL Plt Count 271 (150-450) 10^3/uL Neut % (Auto) 79.1 H (42.2-75.2) % Lymph % (Auto) 9.6 L (20.5-50.1) % Taylor % (Auto) 9.2 H (2-8) % Eos % (Auto) 1.5 (1.0-3.0) % Baso % (Auto) 0.6 (0.0-1.0) % Sodium 136 (135-145) mmol/L Potassium 4.9 (3.6-5.0) mmol/L Chloride 101 (101-111) mmol/L Carbon Dioxide 25.0 (21.0-31.0) mmol/L Anion Gap 14.9 BUN 39 H (7-18) mg/dL Creatinine 2.0 H (0.6-1.3) mg/dL Est Cr Clr Drug Dosing 64.42 mL/min Estimated GFR (MDRD) 37 BUN/Creatinine Ratio 19.50 Glucose 167 H (74-105) mg/dL POC Glucose 160 H (70-105) mg/dl Lactic Acid (0.5-2.2) mmol/L Calcium 9.6 (8.4-10.2) mg/dl Total Bilirubin 0.9 (0.2-1.0) mg/dL AST 34 (10-42) IU/L ALT 38 (10-60) IU/L Alkaline Phosphatase 90 (42-121) IU/L Total Protein 7.7 (6.7-8.2) g/dl Albumin 3.4 (3.2-5.5) g/dl Globulin 4.3 Albumin/Globulin Ratio 0.79 08/18/17 Range/Units 17:07 WBC (5.0-10.0) 10^3/uL RBC (4.6-6.2) 10^6/uL Hgb (14.0-18.0) g/dL Hct (40.0-54.0) % MCV (80-100) fL MCH (27.0-34.0) pg MCHC (33.0-35.0) g/dL Plt Count (150-450) 10^3/uL Neut % (Auto) (42.2-75.2) % Lymph % (Auto) (20.5-50.1) % Taylor % (Auto) (2-8) % Eos % (Auto) (1.0-3.0) % Baso % (Auto) (0.0-1.0) % Sodium (135-145) mmol/L Potassium (3.6-5.0) mmol/L Chloride (101-111) mmol/L Carbon Dioxide (21.0-31.0) mmol/L Anion Gap BUN (7-18) mg/dL Creatinine (0.6-1.3) mg/dL Est Cr Clr Drug Dosing mL/min Estimated GFR (MDRD) BUN/Creatinine Ratio Glucose (74-105) mg/dL POC Glucose (70-105) mg/dl Lactic Acid 0.8 (0.5-2.2) mmol/L Calcium (8.4-10.2) mg/dl Total Bilirubin (0.2-1.0) mg/dL AST (10-42) IU/L ALT (10-60) IU/L Alkaline Phosphatase (42-121) IU/L Total Protein (6.7-8.2) g/dl Albumin (3.2-5.5) g/dl Globulin Albumin/Globulin Ratio Meds: Medications Generic Name Dose Route Start Last Admin Trade Name Freq PRN Reason Stop Dose Admin Vancomycin HCl 1.75 gm/ Sodium 500 mls @ 250 mls/hr 05/06/17 18:03 05/06/17 18:14 Chloride IV 05/06/17 20:02 334 mls/hr ONETIME ONE Administration Departure - Departure Time of Disposition: 18:11 Disposition: Admitted As Inpatient 66 Condition: Fair Clinical Impression: Cellulitis Qualifiers: Site of cellulitis: extremity Site of cellulitis of extremity: lower extremity Laterality: right Qualified Code(s): L03.115 - Cellulitis of right lower limb - Discharge Information Referrals: PCP,None [Primary Care Provider] - Forms: ED Department Discharge Care Plan Goals: Discussed the examination, history and lab results with Dr. Mishra. Dr. Mishra accepted the patient for continued evaluation and management. The patient was started on a Vanco drip (1.75 grams every 12 hours) while in the ED. - My Orders Last 24 Hours: My Active Orders 05/06/17 16:57 Blood Culture x2 Reflex Set [OM.PC] Stat 05/06/17 17:07 CULTURE BLOOD [BC] Stat 05/06/17 17:11 CULTURE BLOOD [BC] Stat 05/06/17 18:03 Vancomycin 1.75 gm Sodium Chloride 0.9% [Normal Saline] 500 ml IV ONETIME - Assessment/Plan Last 24 Hours: My Active Orders 05/06/17 16:57 Blood Culture x2 Reflex Set [OM.PC] Stat 05/06/17 17:07 CULTURE BLOOD [BC] Stat 05/06/17 17:11 CULTURE BLOOD [BC] Stat 05/06/17 18:03 Vancomycin 1.75 gm Sodium Chloride 0.9% [Normal Saline] 500 ml IV ONETIME
--- NOTE | 2017-05-06 19:10 | PCM.HP ---
H&P History of Present Illness - General Date of Service: 05/06/17 Admit Problem/Dx: Cellulitis of the RT Foot Source of Information: Patient - History of Present Illness Initial Comments - Free Text/Narative: Mr. Peters is a 41 y.o male who has a past medical history of chronic kidney disease stage III with proteinuria, since 2011 with baseline serum creatinine around 1.41.8 mg/dL, diabetes mellitus for 10 years with about 700 mg albuminuria in 2014, microscopic hematuria since 2014 hypertension which is resistant but was ~controlled. He was admitted in December 2016.with Acute right lower extremity cellulitis and was started on IV Zyvox with improvement in the symptoms. Today he came to ED with increased pain, swelling and redness on a wound on his right medial maleolus.He was seen by podiatry on after the MRI was done at [facility]. The pt was supposed to start on Augmentin. The patient took the first dose this this afternoon, but he has been feeling worse throughout the day. He had MRI of the Rt ankle on 04/26/17 and the finding was : 1. ~Tenosynovitis of the peroneus and flexor tendons without tear. 2. ~Mild to moderate scattered bone marrow edema throughout the bones of the midfoot hindfoot and ankle. This is nonspecific and most worrisome for mechanical stress although some of this may be related to arthritic change. Degenerative changes of the right foot and ankle. 3. ~Small complex joint effusion of the tibiotalar articulation suspicious for synovitis. 4. ~Plantar fasciitis with large plantar calcaneal spur. 5. ~Diffuse soft tissue edema. 6. ~Talonavicular subluxation. Pes planus. There may be mild subluxation of the tibiotalar articulation. No ruel involvement and recommended continuation of Abx ( Augmentin) . His creatinine has also increased from base line, creatinine today was at 2.0 mg/dl Onset of Symptoms: Reports: Gradual Duration of Symptoms: Reports: Getting Worse Location: Reports: Lower Extremity, Right Quality: Reports: Dull Generalized Pain Score (Numeric/FACES): 8 - Related Data Allergies/Adverse Reactions: Allergies Allergy/AdvReac Type Severity Reaction Status Date / Time cefepime Allergy Liver Verified 05/06/17 18:35 Problems Home Medications: Home Meds Insulin Glarg,Human.Rec.Analog [LantUS Solostar] 25 units INJECT BEDTIME [History] Insulin Aspart [NovoLOG] 22 units SQ TID 12/26/16 [History] Metoprolol Succinate [Toprol XL] 100 mg PO DAILY 12/26/16 [History] Losartan/Hydrochlorothiazide [Losartan-HCTZ 100-25 MG] 1 each PO DAILY 02/04/17 [History] Ranitidine [Zantac] 150 mg PO BID 02/04/17 [History] atorvaSTATin [Lipitor] 20 mg PO BEDTIME 02/04/17 [History] Allopurinol [Zyloprim] 100 mg PO DAILY 05/06/17 [History] Amoxicillin/Clavulanate K [Augmentin 875 MG/125 MG] 1 mg PO BID 05/06/17 [ History] Chlorthalidone 25 mg PO DAILY 05/06/17 [History] Cholecalciferol (Vitamin D3) [Vitamin D] 1,000 units PO DAILY 05/06/17 [History] Sildenafil [Viagra] 100 mg PO ASDIRECTED PRN 05/06/17 [History] Spironolactone [Aldactone] 12.5 mg PO DAILY 05/06/17 [History] amLODIPine [Norvasc] 10 mg PO DAILY 05/06/17 [History] Past Medical History HEENT History: Reports: None Cardiovascular History: Reports: Cardiomyopathy, High Cholesterol, Hypertension , Other (See Below) Other Cardiovascular History: hypertrophic cardiomyopathy Respiratory History: Reports: None Gastrointestinal History: Reports: GERD Genitourinary History: Reports: Renal Calculus, Other (See Below) Other Genitourinary History: "stage 3 kidney disease" Musculoskeletal History: Reports: Gout, Osteoarthritis Neurological History: Reports: None Psychiatric History: Reports: None Endocrine/Metabolic History: Reports: Diabetes, Type II Hematologic History: Reports: None Immunologic History: Reports: None Oncologic (Cancer) History: Reports: None Dermatologic History: Reports: None - Infectious Disease History Infectious Disease History: Reports: Chicken Pox, MRSA - Past Surgical History Head Surgeries/Procedures: Reports: None GI Surgical History: Reports: Cholecystectomy, EGD Social & Family History - Family History Family Medical History: Noncontributory - Tobacco Use Smoking Status *Q: Never Smoker Second Hand Smoke Exposure: No - Caffeine Use Caffeine Use: Reports: Coffee - Recreational Drug Use Recreational Drug Use: No H&P Review of Systems - Review of Systems: Review Of Systems: See Below General: Denies: Fever, Chills, Weakness, Weight Loss, Weight Gain HEENT: Denies: Dysphasia, Post Nasal Drip, Sinus Congestion, Sore Throat Pulmonary: Denies: Shortness of Breath, Wheezing, Pleuritic Chest Pain, Cough, Sputum Cardiovascular: Denies: Chest Pain, Orthopnea, Claudication Gastrointestinal: Denies: Abdominal Pain, Constipation, Diarrhea, Nausea, Vomiting Genitourinary: Denies: Dysuria, Frequency, Burning, Urgency Musculoskeletal: Reports: Foot Pain, Joint Swelling, Other (Rt Medial ankle ). Denies: Shoulder Pain, Back Pain Skin: Reports: Erythema, Wound (rt medial ankle ) Psychiatric: Denies: Confusion, Anxiety, Hallucinations Neurological: Denies: Confusion, Headache, Numbness Hematologic/Lymphatic: Reports: No Symptoms Immunologic: Reports: No Symptoms Exam - Exam Exam: See Below - Vital Signs Vital Signs: Last Vital Signs Temp 38.2 C H 05/06/17 18:52 Pulse 87 05/06/17 18:52 Resp 20 05/06/17 18:52 BP 155/85 H 05/06/17 18:52 Pulse Ox 97 05/06/17 18:52 Weight: 148.795 kg - Exam Quality Assessment: DVT Prophylaxis, Skin Breakdown. No: Supplemental Oxygen, Urinary Catheter General: Alert, Oriented, Cooperative HEENT: Conjunctiva Clear, EOMI, Hearing Intact, Posterior Pharynx Clear, Pupils Equal, Pupils Reactive Neck: Supple. No: Lymphadenopathy, JVD, Thyromegaly Lungs: Clear to Auscultation, Normal Respiratory Effort. No: Crackles, Wheezing Cardiovascular: Regular Rate, Regular Rhythm, Normal S1, Normal S2 GI/Abdominal Exam: Normal Bowel Sounds, Soft, Non-Tender, No Organomegaly. No: Guarding, Rebound, Splenomegaly (Male) Exam: Deferred Rectal (Males) Exam: Deferred Back Exam: Normal Inspection, Full Range of Motion Extremities: Joint Swelling (rt medial ankle), Increased Warmth (Rt Medial ankle ). No: No Pedal Edema Skin: Warm, Dry, Intact Neurological: Cranial Nerves Intact, Reflexes Equal Bilateral Neuro Extensive - Mental Status: Oriented x3, Normal Mood/Affect, Normal Cognition Neuro Extensive - Motor, Sensory, Reflexes: CN II-XII Intact, Normal Gait, Normal Reflexes Psychiatric: Alert, Normal Affect, Normal Mood - Patient Data Result Diagrams: 05/06/17 17:07 05/06/17 17:07 *Q Meaningful Use (ADM) - VTE *Q VTE Criteria *Q: - Stroke *Q Stroke Criteria *Q: - AMI *Q AMI Criteria *Q: - Problem List (1) HTN (hypertension) SNOMED Code(s): 00459999 ICD Code: I10 - ESSENTIAL (PRIMARY) HYPERTENSION Status: Acute Current Visit: Yes (2) CKD (chronic kidney disease) stage 3, GFR 30-59 ml/min SNOMED Code(s): 619039177 ICD Code: N18.3 - CHRONIC KIDNEY DISEASE, STAGE 3 (MODERATE) Status: Acute Current Visit: No (3) Cellulitis of leg without foot, right SNOMED Code(s): 855311715 ICD Code: L03.115 - CELLULITIS OF RIGHT LOWER LIMB Status: Acute Current Visit: No (4) Diabetes SNOMED Code(s): 61806092 ICD Code: E11.9 - TYPE 2 DIABETES MELLITUS WITHOUT COMPLICATIONS Status: Acute Current Visit: No Qualifiers: Diabetes mellitus type: type 2 Diabetes mellitus complication status: with unspecified complications Diabetes mellitus alf insulin use: unspecified alf insulin use status Qualified Code(s): E11.8 - Type 2 diabetes mellitus with unspecified complications Problem List Initiated/Reviewed/Updated: Yes Orders Last 24hrs: Medication Orders Vancomycin HCl 1.75 gm/ Sodium (Chloride) 500 mls @ 250 mls/hr IV ONETIME ONE Stop: 05/06/17 20:02 Last Admin: 05/06/17 18:14 Dose: 334 mls/hr Assessment/Plan Comment:: This is a pleasant 41 y/O Moderately obese Male with poorly controlled diabetes admitted with increased pain, swelling and redness on a wound on his right medial maleolus with drainage 1. Right Medial maleoluar Cellulitis: This issue has been going on for some time and the pt was seen by Podiatry on 05/02 and MRI on 04/26/17 showed no Ostemyelitis -Will start him on Zosyn and Vancomycin, pharmacy to follow the level of Vancomycin -Will get wound culture and also blood culture -Wound dressing wet to dry 2. Hypertension: Bp acceptable and will continue Amlodipine, Chlorthalidone and Metoprolol -Will hold HCTZ-Cozaar combination Medication 3. CKD starge III: This is from Diabetes and HTN, base line creatinine 1.6-1.8 mg/dl and there is acute rise in creatinine -Will cohold cozaar 4. Diabetes II: He is on Lantus and regular Insulin , will continue at the same dose with Blood sugar check qid 5. Dyslipidemia: Continue Lipitor 20 mg daily 6. GI prophylaxis: Continue protonicx 40 mg daily 7, DVT prophylaxis: Continue Heparin 5000 units TID 8. Code status: Full code
[2017-05-06] MEDS ORDERED: Acetaminophen 325 MG Tab PO PRN (19:57)
[2017-05-06] MEDS ORDERED: Docusate Sodium 100 MG Cap PO PRN (19:57)
[2017-05-06] MEDS ORDERED: Piperacillin/Tazobactam 3.375 GM in Sodium Chloride 0.9% 100 ML IV SCH (20:00)
[2017-05-06] MEDS ORDERED: Insulin Aspart 100 Units/ML 3 ML Pen SUBCUT SCH (21:00)
[2017-05-06] MEDS ORDERED: Famotidine 20 MG Tab PO SCH (21:00)
[2017-05-06] MEDS ORDERED: INSULIN GLARG HUMAN REC ANALOG INJECT SCH (21:00)
[2017-05-06] MEDS ORDERED: [UNRECOGNIZED DRUG - OTHER] INJECT SCH (21:00)
[2017-05-06] MEDS: Insulin Detemir 100 Units/ML 3 ML Pen SUBCUT SCH (22:00)
[2017-05-07] MEDS: Piperacillin/Tazobactam 3.375 GM in Sodium Chloride 0.9% 100 ML IV SCH ×4 (04:10→22:36)
[2017-05-07] MEDS: Famotidine 20 MG Tab PO SCH ×2 (05:57→17:34)
[2017-05-07] MEDS: Vancomycin 1.75 GM in Sodium Chloride 0.9% 500 ML IV SCH ×2 (05:57→17:23)
[2017-05-07] MEDS: Insulin Aspart 100 Units/ML 3 ML Pen SUBCUT SCH ×3 (09:48→17:27)
[2017-05-07] MEDS: Allopurinol 100 MG Tab PO SCH (09:49)
[2017-05-07] MEDS: Metoprolol Succinate 50 MG Tab.ER PO SCH (09:49)
[2017-05-07] MEDS: Chlorthalidone 25 MG Tab PO SCH (09:50)
[2017-05-07] MEDS: amLODIPine 5 MG Tab PO SCH (09:50)
[2017-05-07] MEDS: Spironolactone 25 MG Tab PO SCH (09:50)
--- NOTE | 2017-05-07 11:13 | PCM.PN ---
- General Info Date of Service: 05/07/17 Admission Dx/Problem (Free Text): Admitted with : Cellulitis of the RT Foot ( Medial Maleous) Subjective Update: Pt feels better today, No pain, No fever or Chill, No nausea or vomiting. appetite is good, ambulating and No BM for 2 days. Functional Status: Reports: Pain Controlled, Tolerating Diet, Ambulating, Urinating - Review of Systems General: Reports: Appetite (good). Denies: Fever, Malaise, Chills HEENT: Denies: Headaches, Sinus Congestion, Sore Throat, Visual Changes Pulmonary: Denies: Shortness of Breath, Pleuritic Chest Pain, Cough, Sputum, Wheezing Cardiovascular: Denies: Chest Pain, Dyspnea on Exertion, Lightheadedness Gastrointestinal: Reports: Constipation, Diarrhea. Denies: Abdominal Pain, Nausea, Vomiting Genitourinary: Denies: Dysuria, Burning, Urgency, Flank Pain Musculoskeletal: Reports: Joint Pain (rt foot ( Mild)). Denies: Neck Pain, Shoulder Pain Skin: Denies: Jaundice, Dryness, Bruising, Pruritis, Rash Neurological: Denies: Confusion, Dizziness, Tingling, Tremors Psychiatric: Denies: Confusion, Anxiety - Patient Data Vitals - Most Recent: Last Vital Signs Temp 36.8 C 05/07/17 07:42 Pulse 81 05/07/17 09:49 Resp 20 05/07/17 07:42 BP 128/77 05/07/17 09:50 Pulse Ox 99 05/07/17 07:42 Weight - Most Recent: 148.795 kg Lab Results Last 24 Hours: Laboratory Results - last 24 hr 05/06/17 05/07/17 05/07/17 Range/Units 20:58 06:06 07:52 Sodium 139 (135-145) mmol/L Potassium 4.5 (3.6-5.0) mmol/L Chloride 104 (101-111) mmol/L Carbon Dioxide 26.0 (21.0-31.0) mmol/L Anion Gap 13.5 BUN 34 H (7-18) mg/dL Creatinine 1.9 H (0.6-1.3) mg/dL Est Cr Clr Drug Dosing 67.81 mL/min Estimated GFR (MDRD) 39 Glucose 163 H (74-105) mg/dL POC Glucose 137 H 156 H (70-105) mg/dl Calcium 9.3 (8.4-10.2) mg/dl Med Orders - Current: Current Medications Acetaminophen (Tylenol) 650 mg PO Q4H PRN PRN Reason: Pain (mild 1-3 )/fever Last Admin: 05/06/17 22:08 Dose: 650 mg Allopurinol (Zyloprim) 100 mg PO DAILY [facility] Last Admin: 05/07/17 09:49 Dose: 100 mg Amlodipine Besylate (Norvasc) 10 mg PO DAILY [facility] Last Admin: 05/07/17 09:50 Dose: 10 mg Atorvastatin Calcium (Lipitor) 20 mg PO BEDTIME JASBIR Chlorthalidone (Chlorthalidone) 25 mg PO DAILY [facility] Last Admin: 05/07/17 09:50 Dose: 25 mg Docusate Sodium (Colace) 100 mg PO DAILY PRN PRN Reason: Constipation Famotidine (Pepcid) 20 mg PO BIDAC [facility] Last Admin: 05/07/17 05:57 Dose: 20 mg Vancomycin HCl 1.75 gm/ Sodium (Chloride) 500 mls @ 250 mls/hr IV Q12H [facility] Last Admin: 05/07/17 05:57 Dose: 250 mls/hr Piperacillin Sod/Tazobactam (Sod 3.375 gm/ Sodium Chloride) 100 mls @ 200 mls/ hr IV Q6H [facility] Last Admin: 05/07/17 09:53 Dose: 200 mls/hr Insulin Aspart (Novolog) 22 unit SUBCUT TIDMEALS [facility] Last Admin: 05/07/17 09:48 Dose: 22 units Insulin Detemir (Levemir) 25 unit SUBCUT BEDTIME [facility] Last Admin: 05/06/17 22:00 Dose: 25 units Metoprolol Succinate (Toprol Xl) 100 mg PO DAILY [facility] Last Admin: 05/07/17 09:49 Dose: 100 mg Spironolactone (Aldactone) 12.5 mg PO DAILY [facility] Last Admin: 05/07/17 09:50 Dose: 12.5 mg Vancomycin HCl (Pharmacy To Dose - Vancomycin) 1 dose .XX ASDIRECTED [facility] Discontinued Medications Famotidine (Pepcid) 20 mg PO BID [facility] Last Admin: 05/06/17 21:41 Dose: Not Given Vancomycin HCl 1.75 gm/ Sodium (Chloride) 500 mls @ 250 mls/hr IV ONETIME ONE Stop: 05/06/17 20:02 Last Admin: 05/06/17 18:14 Dose: 334 mls/hr Piperacillin Sod/Tazobactam (Sod 3.375 gm/ Sodium Chloride) 100 mls @ 200 mls/ hr IV Q6H [facility] Last Admin: 05/06/17 22:00 Dose: 200 mls/hr Insulin Aspart (Novolog) 22 unit SUBCUT TID [facility] Last Admin: 05/06/17 21:37 Dose: Not Given Non-Formulary Medication (Insulin Glarg,Human.Rec.Analog [Lantus Solostar]) 25 units INJECT BEDTIME JASBIR - Exam Quality Assessment: DVT Prophylaxis. No: Supplemental Oxygen, Urine Catheter General: Alert, Oriented, Cooperative, No Acute Distress HEENT: Pupils Equal, EOMI, Mucous Membr. Moist/Brainard Neck: Supple, No JVD, No Thyromegaly. No: Lymphadenopathy Lungs: Clear to Auscultation, Normal Respiratory Effort. No: Crackles, Wheezing Cardiovascular: Regular Rate, Regular Rhythm GI/Abdominal Exam: Normal Bowel Sounds, Soft, No Distention. No: Guarding, Rebound (Male) Exam: Deferred Back Exam: Normal Inspection, Full Range of Motion Extremities: Normal Inspection, No Pedal Edema, Other (Rt medial aspect of ankel had draining wound with dry dressing) Skin: Warm, Dry, Intact Wound/Incisions: Erythema Improving, Other (dry dressing to the wound) Neurological: No New Focal Deficit, Normal Gait, Normal Speech Psy/Mental Status: Alert, Normal Affect, Normal Mood - Problem List & Annotations (1) HTN (hypertension) SNOMED Code(s): 06604821 Code(s): I10 - ESSENTIAL (PRIMARY) HYPERTENSION Status: Acute Current Visit: Yes (2) CKD (chronic kidney disease) stage 3, GFR 30-59 ml/min SNOMED Code(s): 283993308 Code(s): N18.3 - CHRONIC KIDNEY DISEASE, STAGE 3 (MODERATE) Status: Acute Current Visit: No (3) Cellulitis of leg without foot, right SNOMED Code(s): 854817249 Code(s): L03.115 - CELLULITIS OF RIGHT LOWER LIMB Status: Acute Current Visit: No (4) Diabetes SNOMED Code(s): 04791419 Code(s): E11.9 - TYPE 2 DIABETES MELLITUS WITHOUT COMPLICATIONS Status: Acute Current Visit: No Qualifiers: Diabetes mellitus type: type 2 Diabetes mellitus complication status: with unspecified complications Diabetes mellitus mcc insulin use: unspecified middle or intermediate [employer] principal insulin use status Qualified Code(s): E11.8 - Type 2 diabetes mellitus with unspecified complications - Problem List Review Problem List Initiated/Reviewed/Updated: Yes - My Orders Last 24 Hours: My Active Orders 05/06/17 20:15 Vancomycin Pharmacy to Dose [Pharmacy to Dose - Vancomycin] 1 dose .XX ASDIRECTED 05/06/17 21:00 Insulin Detemir [Levemir] 25 unit SUBCUT BEDTIME 05/06/17 Dinner Consistent Carbohydrate Diet [DIET] 05/07/17 04:00 Piperacillin/Tazobactam [Zosyn] 3.375 gm Sodium Chloride 0.9% [Normal Saline] 100 ml IV Q6H 05/07/17 06:00 Famotidine [Pepcid] 20 mg PO BIDAC Vancomycin 1.75 gm Sodium Chloride 0.9% [Normal Saline] 500 ml IV Q12H 05/07/17 08:00 Insulin Aspart [NovoLOG] 22 unit SUBCUT TIDMEALS 05/07/17 09:00 Allopurinol [Zyloprim] 100 mg PO DAILY Chlorthalidone 25 mg PO DAILY Metoprolol Succinate [Toprol XL] 100 mg PO DAILY Spironolactone [Aldactone] 12.5 mg PO DAILY amLODIPine [Norvasc] 10 mg PO DAILY 05/07/17 21:00 atorvaSTATin [Lipitor] 20 mg PO BEDTIME - Plan Plan:: This is a pleasant 41 y/O Moderately obese Male with poorly controlled diabetes admitted with increased pain, swelling and redness of a wound on his right medial maleolus with drainage 1. Right Medial maleoluar Cellulitis: This issue has been going on for some time and the pt was seen by Podiatry on 05/02 and MRI on 04/26/17 showed no Ostemyelitis -Will continue him on Zosyn and Vancomycin, pharmacy to follow the level of Vancomycin -Will follow wound culture and also blood culture ( no growth so far) -Continue Wound dressing wet to dry 2. Hypertension: Bp acceptable and will continue Amlodipine, Chlorthalidone and Metoprolol -Will continue to hold HCTZ-Cozaar combination Medication 3. CKD starge III: This is from Diabetes and HTN, base line creatinine 1.6-1.8 mg/dl and there is acute rise in creatinine -Will continue hold cozaar, renal function is at the base line 4. Diabetes II: He is on Lantus and regular Insulin , will continue at the same dose with Blood sugar check qid 5. Dyslipidemia: Continue Lipitor 20 mg daily 6. GI prophylaxis: Continue Pepcid 20 mg BID 7, DVT prophylaxis: Continue Heparin 5000 units TID 8. Code status: Full code
[2017-05-07] MEDS: Insulin Detemir 100 Units/ML 3 ML Pen SUBCUT SCH (22:30)
[2017-05-07] MEDS: atorvaSTATin 20 MG Tab PO SCH (22:41)
[2017-05-08] MEDS: Piperacillin/Tazobactam 3.375 GM in Sodium Chloride 0.9% 100 ML IV SCH ×4 (03:59→21:44)
[2017-05-08] MEDS ORDERED: Vancomycin 1 GM SDV ONE (04:54)
[2017-05-08] MEDS: Vancomycin 1.75 GM in Sodium Chloride 0.9% 500 ML IV SCH (05:32)
[2017-05-08] MEDS: Famotidine 20 MG Tab PO SCH ×2 (05:41→17:10)
[2017-05-08] MEDS: Insulin Aspart 100 Units/ML 3 ML Pen SUBCUT SCH ×3 (08:45→17:34)
[2017-05-08] MEDS: Chlorthalidone 25 MG Tab PO SCH (08:56)
[2017-05-08] MEDS: Metoprolol Succinate 50 MG Tab.ER PO SCH (08:57)
[2017-05-08] MEDS: Spironolactone 25 MG Tab PO SCH (08:58)
[2017-05-08] MEDS: amLODIPine 5 MG Tab PO SCH (08:59)
[2017-05-08] MEDS: Allopurinol 100 MG Tab PO SCH (08:59)
--- NOTE | 2017-05-08 14:06 | PCM.PN ---
- General Info Date of Service: 05/08/17 Admission Dx/Problem (Free Text): Admitted with : Cellulitis of the RT Foot ( Medial Maleous) Subjective Update: Pt feels better today, No pain, No fever or Chill, No nausea or vomiting. appetite is good, ambulating and had BM today. Functional Status: Reports: Pain Controlled, Tolerating Diet, Ambulating, Urinating - Review of Systems General: Reports: Appetite (good). Denies: Fever, Chills HEENT: Denies: Headaches, Sinus Congestion, Sore Throat, Visual Changes Pulmonary: Denies: Shortness of Breath, Cough, Wheezing Cardiovascular: Denies: Chest Pain, Dyspnea on Exertion, Lightheadedness Gastrointestinal: Denies: Abdominal Pain, Diarrhea, Melena, Nausea, Vomiting Genitourinary: Denies: Dysuria, Frequency, Burning, Urgency, Flank Pain Musculoskeletal: Denies: Shoulder Pain, Leg Pain, Joint Pain Skin: Denies: Cyanosis, Bruising, Pruritis, Rash Neurological: Denies: Headache, Tingling, Tremors Psychiatric: Denies: Confusion, Anxiety - Patient Data Vitals - Most Recent: Last Vital Signs Temp 36.7 C 05/08/17 11:54 Pulse 73 05/08/17 11:54 Resp 20 05/08/17 11:54 BP 167/81 H 05/08/17 11:54 Pulse Ox 98 05/08/17 11:54 Weight - Most Recent: 148.795 kg I&O - Last 24 Hours: Intake & Output 05/07/17 05/08/17 05/08/17 22:59 06:59 14:59 Intake Total 1100 840 350 Balance 1100 840 350 Lab Results Last 24 Hours: Laboratory Results - last 24 hr 05/07/17 05/07/17 05/08/17 Range/Units 16:53 20:59 07:49 POC Glucose 127 H 103 133 H (70-105) mg/dl 05/08/17 Range/Units 11:04 POC Glucose 194 H (70-105) mg/dl Med Orders - Current: Current Medications Acetaminophen (Tylenol) 650 mg PO Q4H PRN PRN Reason: Pain (mild 1-3 )/fever Last Admin: 05/06/17 22:08 Dose: 650 mg Allopurinol (Zyloprim) 100 mg PO DAILY JASBIR Last Admin: 05/08/17 08:59 Dose: 100 mg Amlodipine Besylate (Norvasc) 10 mg PO DAILY [facility] Last Admin: 05/08/17 08:59 Dose: 10 mg Atorvastatin Calcium (Lipitor) 20 mg PO BEDTIME [facility] Last Admin: 05/07/17 22:41 Dose: 20 mg Chlorthalidone (Chlorthalidone) 25 mg PO DAILY [facility] Last Admin: 05/08/17 08:56 Dose: 25 mg Docusate Sodium (Colace) 100 mg PO DAILY PRN PRN Reason: Constipation Famotidine (Pepcid) 20 mg PO BIDAC [facility] Last Admin: 05/08/17 05:41 Dose: 20 mg Vancomycin HCl 1.75 gm/ Sodium (Chloride) 500 mls @ 250 mls/hr IV Q12H [facility] Last Admin: 05/08/17 05:32 Dose: 250 mls/hr Piperacillin Sod/Tazobactam (Sod 3.375 gm/ Sodium Chloride) 100 mls @ 200 mls/ hr IV Q6H [facility] Last Infusion: 05/08/17 11:28 Dose: Infused Insulin Aspart (Novolog) 22 unit SUBCUT TIDMEALS [facility] Last Admin: 05/08/17 12:30 Dose: 22 units Insulin Detemir (Levemir) 25 unit SUBCUT BEDTIME [facility] Last Admin: 05/07/17 22:30 Dose: 25 units Metoprolol Succinate (Toprol Xl) 100 mg PO DAILY [facility] Last Admin: 05/08/17 08:57 Dose: 100 mg Spironolactone (Aldactone) 12.5 mg PO DAILY [facility] Last Admin: 05/08/17 08:58 Dose: 12.5 mg Vancomycin HCl (Pharmacy To Dose - Vancomycin) 1 dose .XX ASDIRECTED [facility] Discontinued Medications Famotidine (Pepcid) 20 mg PO BID [facility] Last Admin: 05/06/17 21:41 Dose: Not Given Vancomycin HCl 1.75 gm/ Sodium (Chloride) 500 mls @ 250 mls/hr IV ONETIME ONE Stop: 05/06/17 20:02 Last Admin: 05/06/17 18:14 Dose: 334 mls/hr Piperacillin Sod/Tazobactam (Sod 3.375 gm/ Sodium Chloride) 100 mls @ 200 mls/ hr IV Q6H [facility] Last Admin: 05/06/17 22:00 Dose: 200 mls/hr Insulin Aspart (Novolog) 22 unit SUBCUT TID [facility] Last Admin: 05/06/17 21:37 Dose: Not Given Non-Formulary Medication (Insulin Glarg,Human.Rec.Analog [Lantus Solostar]) 25 units INJECT BEDTIME [facility] Vancomycin HCl (Vancomycin) Confirm Administered Dose 2 gm .ROUTE .STK-MED ONE Stop: 05/08/17 04:55 Last Admin: 05/08/17 05:39 Dose: Not Given - Exam Quality Assessment: DVT Prophylaxis. No: Supplemental Oxygen, Urine Catheter General: Alert, Oriented, Cooperative, No Acute Distress HEENT: Pupils Equal, EOMI, Mucous Membr. Moist/[place] Neck: Supple. No: No JVD, Lymphadenopathy Lungs: Clear to Auscultation, Normal Respiratory Effort. No: Rales, Wheezing Cardiovascular: Regular Rate, Regular Rhythm GI/Abdominal Exam: Normal Bowel Sounds, Soft, Non-Tender, No Distention. No: Guarding, Rebound (Male) Exam: Deferred Back Exam: Normal Inspection, Full Range of Motion Extremities: Normal Inspection, Normal Range of Motion, No Pedal Edema Skin: Warm, Dry, Intact Wound/Incisions: Healing Well Neurological: No New Focal Deficit Psy/Mental Status: Alert, Normal Affect, Normal Mood - Problem List & Annotations (1) HTN (hypertension) SNOMED Code(s): 10920631 Code(s): I10 - ESSENTIAL (PRIMARY) HYPERTENSION Status: Acute Current Visit: Yes (2) CKD (chronic kidney disease) stage 3, GFR 30-59 ml/min SNOMED Code(s): 126306818 Code(s): N18.3 - CHRONIC KIDNEY DISEASE, STAGE 3 (MODERATE) Status: Acute Current Visit: No (3) Cellulitis of leg without foot, right SNOMED Code(s): 435180266 Code(s): L03.115 - CELLULITIS OF RIGHT LOWER LIMB Status: Acute Current Visit: No (4) Diabetes SNOMED Code(s): 46242989 Code(s): E11.9 - TYPE 2 DIABETES MELLITUS WITHOUT COMPLICATIONS Status: Acute Current Visit: No Qualifiers: Diabetes mellitus type: type 2 Diabetes mellitus complication status: with unspecified complications Diabetes mellitus extermination inspector insulin use: unspecified extermination inspector insulin use status Qualified Code(s): E11.8 - Type 2 diabetes mellitus with unspecified complications - Problem List Review Problem List Initiated/Reviewed/Updated: Yes - My Orders Last 24 Hours: My Active Orders 05/07/17 18:12 Blood Glucose Check, Bedside [] QIDACANDBED 05/07/17 21:00 atorvaSTATin [Lipitor] 20 mg PO BEDTIME - Plan Plan:: This is a pleasant 41 y/O Moderately obese Male with poorly controlled diabetes admitted with increased pain, swelling and redness of a wound on his right medial maleolus with drainage 1. Right Medial maleoluar Cellulitis: This issue has been going on for some time and the pt was seen by Podiatry on 05/02 and MRI on 04/26/17 showed no Ostemyelitis -Will continue him on Zosyn and Vancomycin, pharmacy to follow the level of Vancomycin -Will follow wound culture and also blood culture ( wound culture Beta Hemolytic strep- ID and sensitivity pending) -Continue Wound dressing wet to dry 2. Hypertension: Bp acceptable and will continue Amlodipine, Chlorthalidone and Metoprolol -Will continue to hold HCTZ-Cozaar combination Medication 3. CKD starge III: This is from Diabetes and HTN, base line creatinine 1.6-1.8 mg/dl and there is acute rise in creatinine -Will continue hold cozaar, renal function is at the base line 4. Diabetes II: He is on Lantus and regular Insulin , continue Blood sugar check qid 5. Dyslipidemia: Continue Lipitor 20 mg daily 6. GI prophylaxis: Continue Pepcid 20 mg BID 7, DVT prophylaxis: Continue Heparin 5000 units TID 8. Code status: Full code
[2017-05-08] MEDS: atorvaSTATin 20 MG Tab PO SCH (20:27)
[2017-05-08] MEDS: Insulin Detemir 100 Units/ML 3 ML Pen SUBCUT SCH (21:14)
[2017-05-09] MEDS: Piperacillin/Tazobactam 3.375 GM in Sodium Chloride 0.9% 100 ML IV SCH ×2 (04:13→09:59)
[2017-05-09] MEDS ORDERED: Vancomycin 1 GM SDV ONE (04:42)
[2017-05-09] MEDS: Famotidine 20 MG Tab PO SCH (05:36)
[2017-05-09] MEDS: Insulin Aspart 100 Units/ML 3 ML Pen SUBCUT SCH ×2 (08:30→12:27)
[2017-05-09] MEDS: Spironolactone 25 MG Tab PO SCH (08:36)
[2017-05-09] MEDS: Allopurinol 100 MG Tab PO SCH (08:36)
[2017-05-09] MEDS: amLODIPine 5 MG Tab PO SCH (08:43)
[2017-05-09] MEDS: Chlorthalidone 25 MG Tab PO SCH (08:43)
[2017-05-09] MEDS: Metoprolol Succinate 50 MG Tab.ER PO SCH (08:43)
[2017-05-09 11:16] VITALS: BP 152/83
--- NOTE | 2017-05-18 01:44 | DISCH ---
FINAL DIAGNOSES: 1. Right medial malleolar cellulitis. 2. Hypertension. 3. Chronic kidney disease. 4. Diabetes. 5. Dyslipidemia. BRIEF HISTORY AND PHYSICAL EXAMINATION: The patient is a 41-year-old male, admitted on 05/06/2017 because of cellulitis in the right foot, actually has been having this problem since 2 weeks ago and not until recently, where he was seen around 4 days prior to this visit and had an MRI done. No osteomyelitis. He did not fill the Augmentin up until the day of admission, noticed some draining on the affected side as well. PAST MEDICAL HISTORY: 1. CKD. 2. Diabetes. 3. Hypertension. 4. Gout. 5. Osteoarthritis. Documented physical examination on admission showed joint swelling in the right medial ankle with increased warmth. No pedal edema noted. LABORATORY DATA: Workup done in the hospital showed wound culture showing Streptococcus agalactiae. Blood cultures were unrevealing. Admitting CBC showed a WBC of 8.2 and hemoglobin of 12.6. Creatinine of 2.0. The discharge creatinine is 1.8. HOSPITAL COURSE: The patient was admitted in the medical-surgical bed. He was started on Zosyn and vancomycin to cover possible MRSA given his diabetes. Wound culture ordered and wound dressing done. His antihypertensives were continued except for his Cozaar. His kidney function was also followed. DVT prophylaxis with heparin. He remained afebrile during his stay. After initial fever during admission, temperatures have defervesced. On the day of discharge, felt significantly better. Discharge vital signs showed a blood pressure of 129/86, heart rate of 71 beats per minute, respirations 20 breaths per minute, oxygen saturation 98%. DISCHARGE INSTRUCTIONS: The patient to be discharged home. Complete antibiotics. Continue with wet-to-dry dressing at home. Apply mupirocin ointment to the affected area. Follow up with primary care provider within 1 week from discharge. Monitor side effects from the antibiotics. [facility] /[id number] DEONDRE
== END 2017-05-09 12:47 | disposition home or self-care (01) | DRG 603 ==
LOC: DL.ED 16:23 → DL.MS 18:26 → UNDOADMIN 18:26 → DL.MS 19:57
PROVIDERS: ADMIT Internal Medicine; ATTEND Internal Medicine
DX: L03.115 Cellulitis of right lower limb (principal); E11.22 Type 2 diabetes mellitus with diabetic chronic kidney disease; E11.65 Type 2 diabetes mellitus with hyperglycemia; I12.9 Hypertensive chronic kidney disease with stage 1 through stage 4 chronic kidney disease, or unspecified chronic kidney disease; N18.3 Chronic kidney disease, stage 3 (moderate); E78.5 Hyperlipidemia, unspecified; E66.9 Obesity, unspecified; Z68.37 Body mass index [BMI] 37.0-37.9, adult; Z79.4 Long term (current) use of insulin; Z79.899 Other long term (current) drug therapy; Z28.21 Immunization not carried out because of patient refusal
CPT/HCPCS: 36415; 80048; 80053; 80202; 82962; 83605; 85025; 87040; 87070; 87077; 87186; 99284; A9270-GY; J1815-GY; J2543; J3370; J7040; J7050

== ENCOUNTER 2017-06-05 14:19 | Emergency (ER) | payer OTHER ==
[2017-06-05] MEDS ORDERED: Albuterol 6.7 GM Inhaler INH ONE ×2 (14:20→17:01)
[2017-06-05] MEDS ORDERED: Albuterol 0.021% 0.63 MG/3 ML Neb Soln NEB ONE (14:47)
--- NOTE | 2017-06-05 14:48 | EDM.PDOC ---
ED HPI GENERAL MEDICAL PROBLEM - General Chief Complaint: Respiratory Problem Stated Complaint: SOB Time Seen by Provider: 06/05/17 14:44 Source of Information: Reports: Patient, Family () History Limitations: Reports: No Limitations - History of Present Illness INITIAL COMMENTS - FREE TEXT/NARRATIVE: 41 yo [place] Male c/o of SOB suddenly while sitting and watching TV. Per this same symptom developed in March w/ negative work-up and has followed up with Pulmonary in [place]. Pt. states he has been told he has a narrow trachea. Pt. denies any chest pain. pt. states he is awaiting a sleep study Onset: Today Onset Date: 06/05/17 Onset Time: 13:00 Duration: Hour(s): Location: Reports: Chest Severity: Mild Improves with: Reports: None Worsens with: Reports: None Associated Symptoms: Reports: Shortness of Breath - Related Data Allergies Allergy/AdvReac Type Severity Reaction Status Date / Time cefepime Allergy Liver Verified 06/05/17 14:32 Problems Home Meds: Home Meds Insulin Glarg,Human.Rec.Analog [LantUS Solostar] 25 units INJECT BEDTIME [History] Insulin Aspart [NovoLOG] 22 units SQ TID 12/26/16 [History] Metoprolol Succinate [Toprol XL] 100 mg PO DAILY 12/26/16 [History] Losartan/Hydrochlorothiazide [Losartan-HCTZ 100-25 MG] 1 each PO DAILY 02/04/17 [History] Ranitidine [Zantac] 150 mg PO BID 02/04/17 [History] atorvaSTATin [Lipitor] 20 mg PO DAILY 02/04/17 [History] Allopurinol [Zyloprim] 100 mg PO DAILY 05/06/17 [History] Chlorthalidone 25 mg PO DAILY 05/06/17 [History] Cholecalciferol (Vitamin D3) [Vitamin D] 1,000 units PO DAILY 05/06/17 [History] Sildenafil [Viagra] 100 mg PO ASDIRECTED PRN 05/06/17 [History] amLODIPine [Norvasc] 10 mg PO DAILY 05/06/17 [History] Mupirocin Oint [Bactroban Oint] 1 gm TOP BID #1 tube 05/09/17 [Rx] Past Medical History HEENT History: Reports: None, Impaired Vision Other HEENT History: wears glasses Cardiovascular History: Reports: Cardiomyopathy, High Cholesterol, Hypertension , Other (See Below) Other Cardiovascular History: hypertrophic cardiomyopathy Respiratory History: Reports: None Gastrointestinal History: Reports: GERD Genitourinary History: Reports: Renal Calculus, Other (See Below) Other Genitourinary History: "stage 3 kidney disease" Musculoskeletal History: Reports: Gout, Osteoarthritis Neurological History: Reports: None Psychiatric History: Reports: None Endocrine/Metabolic History: Reports: Diabetes, Type II Hematologic History: Reports: None Immunologic History: Reports: None Oncologic (Cancer) History: Reports: None Dermatologic History: Reports: None - Infectious Disease History Infectious Disease History: Reports: Chicken Pox, MRSA - Past Surgical History Head Surgeries/Procedures: Reports: None GI Surgical History: Reports: Cholecystectomy, EGD Social & Family History - Family History Family Medical History: Noncontributory - Tobacco Use Smoking Status *Q: Never Smoker Second Hand Smoke Exposure: No - Caffeine Use Caffeine Use: Reports: Coffee - Recreational Drug Use Recreational Drug Use: No ED ROS GENERAL - Review of Systems Review Of Systems: See Below Constitutional: Reports: No Symptoms HEENT: Reports: No Symptoms Respiratory: Reports: Shortness of Breath Cardiovascular: Reports: No Symptoms Endocrine: Reports: No Symptoms GI/Abdominal: Reports: No Symptoms : Reports: No Symptoms Musculoskeletal: Reports: No Symptoms Skin: Reports: No Symptoms Neurological: Reports: No Symptoms Psychiatric: Reports: No Symptoms Hematologic/Lymphatic: Reports: No Symptoms Immunologic: Reports: No Symptoms ED EXAM, GENERAL - Physical Exam Exam: See Below Exam Limited By: No Limitations General Appearance: Alert, Obese Eye Exam: Bilateral Eye: EOMI, PERRL Ears: Normal External Exam Ear Exam: Bilateral Ear: TM normal Nose: Normal Inspection Throat/Mouth: Normal Inspection, Normal Lips Head: Atraumatic, Normocephalic Neck: Normal Inspection, Supple Respiratory/Chest: No Respiratory Distress, Lungs Clear, Normal Breath Sounds, No Accessory Muscle Use, Chest Non-Tender Cardiovascular: Normal Peripheral Pulses, Regular Rate, Rhythm, No Edema GI/Abdominal: Normal Bowel Sounds, Soft, Non-Tender Back Exam: Normal Inspection Extremities: Normal Inspection, Normal Range of Motion Neurological: Alert, Oriented, CN II-XII Intact, Normal Cognition Psychiatric: Normal Affect, Normal Mood Skin Exam: Warm, Dry, Intact, Normal Color Lymphatic: No Adenopathy Course - Vital Signs Last Recorded V/S: Last Vital Signs Temp 36.1 C 06/05/17 16:33 Pulse 71 06/05/17 16:33 Resp 14 06/05/17 16:33 BP 128/67 06/05/17 16:33 Pulse Ox 91 L 06/05/17 16:33 - Orders/Labs/Meds Orders: Active Orders 24 hr Category Date Time Status EKG 12 Lead [EKG Documentation Completion] [RC] STAT Care 06/05/17 14:59 Active RT Aerosol Therapy [RC] ASDIRECTED Care 06/05/17 14:47 Active Labs: Laboratory Tests 06/05/17 06/05/17 06/05/17 Range/Units 14:55 14:59 14:59 WBC 6.6 (5.0-10.0) 10^3/uL RBC 4.11 L (4.6-6.2) 10^6/uL Hgb 12.2 L (14.0-18.0) g/dL Hct 36.8 L (40.0-54.0) % MCV 89.5 (80-100) fL MCH 29.7 (27.0-34.0) pg MCHC 33.2 (33.0-35.0) g/dL Plt Count 288 (150-450) 10^3/uL Neut % (Auto) 63.8 (42.2-75.2) % Lymph % (Auto) 21.7 (20.5-50.1) % [place] % (Auto) 10.6 H (2-8) % Eos % (Auto) 3.3 H (1.0-3.0) % Baso % (Auto) 0.6 (0.0-1.0) % D-Dimer, Quantitative 205 H (0-400) ng/mL ABG pH 7.34 L (7.35-7.45) ABG pCO2 51 H (35-45) mmHg ABG pO2 27 L* (70-100) mmHg ABG HCO3 26.7 H (22-26) mmol/L ABG O2 Saturation 28 L (95-100) % ABG Base Excess 1 ((-2)-(+3)) mmol/L Florentin Test pos O2 Delivery Device Room air Sodium (135-145) mmol/L Potassium (3.6-5.0) mmol/L Chloride (101-111) mmol/L Carbon Dioxide (21.0-31.0) mmol/L Anion Gap BUN (7-18) mg/dL Creatinine (0.6-1.3) mg/dL Est Cr Clr Drug Dosing mL/min Estimated GFR (MDRD) BUN/Creatinine Ratio Glucose (74-105) mg/dL Calcium (8.4-10.2) mg/dl Total Bilirubin (0.2-1.0) mg/dL AST (10-42) IU/L ALT (10-60) IU/L Alkaline Phosphatase (42-121) IU/L Total Protein (6.7-8.2) g/dl Albumin (3.2-5.5) g/dl Globulin Albumin/Globulin Ratio 06/05/ Range/Units 14:59 WBC (5.0-10.0) 10^3/uL RBC (4.6-6.2) 10^6/uL Hgb (14.0-18.0) g/dL Hct (40.0-54.0) % MCV (80-100) fL MCH (27.0-34.0) pg MCHC (33.0-35.0) g/dL Plt Count (150-450) 10^3/uL Neut % (Auto) (42.2-75.2) % Lymph % (Auto) (20.5-50.1) % [place] % (Auto) (2-8) % Eos % (Auto) (1.0-3.0) % Baso % (Auto) (0.0-1.0) % D-Dimer, Quantitative (0-400) ng/mL ABG pH (7.35-7.45) ABG pCO2 (35-45) mmHg ABG pO2 (70-100) mmHg ABG HCO3 (22-26) mmol/L ABG O2 Saturation (95-100) % ABG Base Excess ((-2)-(+3)) mmol/L Florentin Test O2 Delivery Device Sodium 140 (135-145) mmol/L Potassium 5.1 H (3.6-5.0) mmol/L Chloride 105 (101-111) mmol/L Carbon Dioxide 25.0 (21.0-31.0) mmol/L Anion Gap 15.1 BUN 35 H (7-18) mg/dL Creatinine 1.6 H (0.6-1.3) mg/dL Est Cr Clr Drug Dosing 80.52 mL/min Estimated GFR (MDRD) 48 BUN/Creatinine Ratio 21.87 Glucose 190 H (74-105) mg/dL Calcium 9.1 (8.4-10.2) mg/dl Total Bilirubin 0.5 (0.2-1.0) mg/dL AST 27 (10-42) IU/L ALT 25 (10-60) IU/L Alkaline Phosphatase 91 (42-121) IU/L Total Protein 7.7 (6.7-8.2) g/dl Albumin 3.4 (3.2-5.5) g/dl Globulin 4.3 Albumin/Globulin Ratio 0.79 Meds: Medications Discontinued Medications Generic Name Dose Route Start Last Admin Trade Name Freq PRN Reason Stop Dose Admin Albuterol 0.63 mg 06/05/17 14:47 06/05/17 15:16 Proventil Neb Soln NEB 06/05/17 14:48 0.63 mg ONETIME ONE Administration Albuterol Confirm 06/05/17 17:01 Proventil Hfa Administered 06/05/17 17:02 Dose 6.7 gm INH .STK-MED ONE Departure - Departure Time of Disposition: 17:59 Disposition: Home, Self-Care 01 Condition: Good Clinical Impression: SOB (shortness of breath) on exertion - Discharge Information Forms: ED Department Discharge Additional Instructions: Rest Use the Albuterol MDI 2 puffs Q 4hours as needed F/U w/ PULMONARY - My Orders Last 24 Hours: My Active Orders 06/05/17 14:47 RT Aerosol Therapy [RC] ASDIRECTED 06/05/17 14:59 EKG 12 Lead [EKG Documentation Completion] [RC] STAT - Assessment/Plan Last 24 Hours: My Active Orders 06/05/17 14:47 RT Aerosol Therapy [RC] ASDIRECTED 06/05/17 14:59 EKG 12 Lead [EKG Documentation Completion] [RC] STAT
[2017-06-05 18:02] VITALS: BP 142/78
[2017-06-06 12:40] LABS: BASE EXCESS VENOUS 0.7 mmol/l ((-2)-(+3)); BICARBONATE,VENOUS 27 mmol/l (19-25); O2 DELIVERY DEVICE ROOM AIR; O2 SATURATION VENOUS 27.8 % (60-80); PCO2 VENOUS 51 mmHg (41-51); PH,VENOUS 7.34 (7.31-7.41); PO2 VENOUS 27 mmHg (35-42)
--- NOTE | 2017-06-08 09:57 | EKG ---
06/05/2017 - JESSICA WARD - EKG is sinus rhythm with a rate of 69. There is a first-degree AV block. There is nonspecific interventricular conduction delay and Q waves on the inferior leads. IMPRESSION: Abnormal EKG as noted above. [facility] /[id number]
== END 2017-06-05 18:21 | disposition home or self-care (01) ==
LOC: DL.ED 14:19
DX: R06.02 Shortness of breath (principal); I13.10 Hypertensive heart and chronic kidney disease without heart failure, with stage 1 through stage 4 chronic kidney disease, or unspecified chronic kidney disease; E11.22 Type 2 diabetes mellitus with diabetic chronic kidney disease; N18.3 Chronic kidney disease, stage 3 (moderate); K21.9 Gastro-esophageal reflux disease without esophagitis; M19.90 Unspecified osteoarthritis, unspecified site; Z90.49 Acquired absence of other specified parts of digestive tract; Z79.4 Long term (current) use of insulin; Z79.899 Other long term (current) drug therapy; Z88.1 Allergy status to other antibiotic agents
CPT/HCPCS: 36415; 36600; 71020; 80053; 82803; 85025; 85379; 93005; 99285; A9270-GY

== ENCOUNTER 2017-07-06 20:15 | Emergency (ER) | payer OTHER ==
--- NOTE | 2017-07-06 20:35 | EDM.PDOC ---
ED HPI GENERAL MEDICAL PROBLEM - General Chief Complaint: Respiratory Problem Stated Complaint: COMING IN OWN VEHICLE Time Seen by Provider: 07/06/17 20:30 Source of Information: Reports: Patient, Family History Limitations: Reports: No Limitations - History of Present Illness INITIAL COMMENTS - FREE TEXT/NARRATIVE: spouse states pt just had sleep study for low O2 sat ~ 82% since March. Dx with sleep apnoea. family states Pt started shakiness en route home. found pt in bed c/o sob shaking sweating moaning. pt denies CP but heaviness. EMS gave neb and felt somewhat better. states has h/o elevates d dimer with multiple negative V/ Q also has stage 3 K-failure. also Dx with COPD, BNP @ 190 last time. - Related Data Allergies Allergy/AdvReac Type Severity Reaction Status Date / Time cefepime Allergy Liver Verified 07/06/17 20:46 Problems Home Meds: Home Meds Insulin Glarg,Human.Rec.Analog [LantUS Solostar] 25 units INJECT BEDTIME [History] Insulin Aspart [NovoLOG] 22 units SQ TID 12/26/16 [History] Metoprolol Succinate [Toprol XL] 100 mg PO DAILY 12/26/16 [History] Losartan/Hydrochlorothiazide [Losartan-HCTZ 100-25 MG] 1 each PO DAILY 02/04/17 [History] Ranitidine [Zantac] 150 mg PO BID 02/04/17 [History] atorvaSTATin [Lipitor] 20 mg PO DAILY 02/04/17 [History] Allopurinol [Zyloprim] 100 mg PO DAILY 05/06/17 [History] Chlorthalidone 25 mg PO DAILY 05/06/17 [History] Cholecalciferol (Vitamin D3) [Vitamin D] 1,000 units PO DAILY 05/06/17 [History] Sildenafil [Viagra] 100 mg PO ASDIRECTED PRN 05/06/17 [History] amLODIPine [Norvasc] 10 mg PO DAILY 05/06/17 [History] Mupirocin Oint [Bactroban Oint] 1 gm TOP BID #1 tube 05/09/17 [Rx] Fluticasone Propionate [Flovent] 07/06/17 [History] Furosemide 07/06/17 [History] Ipratropium/Albuterol Sulfate [Iprat-Albut 0.5-3(2.5) mg/3 ml] 07/06/17 [ History] Past Medical History HEENT History: Reports: None, Impaired Vision Other HEENT History: wears glasses Cardiovascular History: Reports: Cardiomyopathy, High Cholesterol, Hypertension , Other (See Below) Other Cardiovascular History: hypertrophic cardiomyopathy Respiratory History: Reports: None Gastrointestinal History: Reports: GERD Genitourinary History: Reports: Renal Calculus, Other (See Below) Other Genitourinary History: "stage 3 kidney disease" Musculoskeletal History: Reports: Gout, Osteoarthritis Neurological History: Reports: None Psychiatric History: Reports: None Endocrine/Metabolic History: Reports: Diabetes, Type II Hematologic History: Reports: None Immunologic History: Reports: None Oncologic (Cancer) History: Reports: None Dermatologic History: Reports: None - Infectious Disease History Infectious Disease History: Reports: Chicken Pox, MRSA - Past Surgical History Head Surgeries/Procedures: Reports: None GI Surgical History: Reports: Cholecystectomy, EGD Social & Family History - Family History Family Medical History: Noncontributory - Tobacco Use Smoking Status *Q: Never Smoker Second Hand Smoke Exposure: No - Caffeine Use Caffeine Use: Reports: Coffee - Recreational Drug Use Recreational Drug Use: No ED ROS GENERAL - Review of Systems Review Of Systems: ROS reveals no pertinent complaints other than HPI. ED EXAM, GENERAL - Physical Exam Exam: See Below Exam Limited By: No Limitations General Appearance: Alert, WD/WN, Mild Distress, Other (sob) Ears: Hearing Grossly Normal Throat/Mouth: Normal Voice, No Airway Compromise Head: Atraumatic Neck: Non-Tender, Full Range of Motion Respiratory/Chest: No Accessory Muscle Use, Crackles, Rales, Rhonchi. No: Decreased Breath Sounds, Retractions, Splinting Cardiovascular: Regular Rate, Rhythm GI/Abdominal: Soft, Non-Tender Neurological: Alert, Oriented, Normal Cognition, Normal Gait, No Motor/Sensory Deficits Psychiatric: Flat Affect Skin Exam: Warm, Dry, Normal Color Lymphatic: No Adenopathy Course - Vital Signs Last Recorded V/S: Last Vital Signs Temp 35.8 C 07/06/17 20:30 Pulse 84 07/06/17 20:30 Resp 24 H 07/06/17 20:30 BP 175/87 H 07/06/17 20:30 Pulse Ox 89 L 07/06/17 20:30 - Orders/Labs/Meds Orders: Active Orders 24 hr Category Date Time Status EKG 12 Lead [EKG Documentation Completion] [RC] STAT Care 07/06/17 20:29 Active CULTURE BLOOD [BC] Stat Lab 07/06/17 20:25 Received Labs: Laboratory Tests 07/06/17 07/06/17 07/06/17 Range/Units 20:25 20:25 20:25 WBC 10.3 H (5.0-10.0) 10^3/uL RBC 4.77 (4.6-6.2) 10^6/uL Hgb 13.8 L D (14.0-18.0) g/dL Hct 42.3 (40.0-54.0) % MCV 88.7 (80-100) fL MCH 28.9 (27.0-34.0) pg MCHC 32.6 L (33.0-35.0) g/dL Plt Count 328 (150-450) 10^3/uL Neut % (Auto) 78.6 H (42.2-75.2) % Lymph % (Auto) 11.9 L (20.5-50.1) % [place] % (Auto) 7.2 (2-8) % Eos % (Auto) 1.9 (1.0-3.0) % Baso % (Auto) 0.4 (0.0-1.0) % D-Dimer, Quantitative 1430 H (0-400) ng/mL Sodium 136 (135-145) mmol/L Potassium 4.5 (3.6-5.0) mmol/L Chloride 103 (101-111) mmol/L Carbon Dioxide 27.0 (21.0-31.0) mmol/L Anion Gap 10.5 BUN 30 H (7-18) mg/dL Creatinine 1.7 H (0.6-1.3) mg/dL Est Cr Clr Drug Dosing 75.02 mL/min Estimated GFR (MDRD) 44 BUN/Creatinine Ratio 17.64 Glucose 105 (74-105) mg/dL Lactic Acid (0.5-2.2) mmol/L Calcium 10.2 (8.4-10.2) mg/dl Total Bilirubin 1.1 H (0.2-1.0) mg/dL AST 33 (10-42) IU/L ALT 25 (10-60) IU/L Alkaline Phosphatase 101 (42-121) IU/L Troponin I 0.02 (0.00-0.02) ng/ml B-Natriuretic Peptide 159 H (0-100) pg/ml Total Protein 8.7 H (6.7-8.2) g/dl Albumin 4.0 (3.2-5.5) g/dl Globulin 4.7 Albumin/Globulin Ratio 0.85 10/18/17 Range/Units 20:25 WBC (5.0-10.0) 10^3/uL RBC (4.6-6.2) 10^6/uL Hgb (14.0-18.0) g/dL Hct (40.0-54.0) % MCV (80-100) fL MCH (27.0-34.0) pg MCHC (33.0-35.0) g/dL Plt Count (150-450) 10^3/uL Neut % (Auto) (42.2-75.2) % Lymph % (Auto) (20.5-50.1) % [place] % (Auto) (2-8) % Eos % (Auto) (1.0-3.0) % Baso % (Auto) (0.0-1.0) % D-Dimer, Quantitative (0-400) ng/mL Sodium (135-145) mmol/L Potassium (3.6-5.0) mmol/L Chloride (101-111) mmol/L Carbon Dioxide (21.0-31.0) mmol/L Anion Gap BUN (7-18) mg/dL Creatinine (0.6-1.3) mg/dL Est Cr Clr Drug Dosing mL/min Estimated GFR (MDRD) BUN/Creatinine Ratio Glucose (74-105) mg/dL Lactic Acid 1.1 (0.5-2.2) mmol/L Calcium (8.4-10.2) mg/dl Total Bilirubin (0.2-1.0) mg/dL AST (10-42) IU/L ALT (10-60) IU/L Alkaline Phosphatase (42-121) IU/L Troponin I (0.00-0.02) ng/ml B-Natriuretic Peptide (0-100) pg/ml Total Protein (6.7-8.2) g/dl Albumin (3.2-5.5) g/dl Globulin Albumin/Globulin Ratio - Re-Assessments/Exams Free Text/Narrative Re-Assessment/Exam: 07/06/17 21:[address] Cunha @ who kindly accepted pt. Departure - Departure Time of Disposition: 21:48 Disposition: DC/Tfer to [facility] 02 Condition: Fair Clinical Impression: CKD (chronic kidney disease) stage 3, GFR 30-59 ml/min, SOB (shortness of breath) on exertion, Pleural effusion, Elevated d-dimer - Discharge Information Forms: Interfacility Transfer EMTALA - My Orders Last 24 Hours: My Active Orders 07/06/17 20:25 CULTURE BLOOD [BC] Stat 07/06/17 20:29 EKG 12 Lead [EKG Documentation Completion] [RC] STAT - Assessment/Plan Last 24 Hours: My Active Orders 07/06/17 20:25 CULTURE BLOOD [BC] Stat 07/06/17 20:29 EKG 12 Lead [EKG Documentation Completion] [RC] STAT
[2017-07-06 21:53] VITALS: BP 154/81
--- NOTE | 2017-07-07 11:29 | EKG ---
07/06/2017 - JESSICA WARD - TIME: 2023. EKG shows normal sinus rhythm. There is first degree AV block. Nonspecific intraventricular conduction delay. [facility] /[id number]
== END 2017-07-06 22:15 ==
LOC: DL.ED 20:15
DX: I12.9 Hypertensive chronic kidney disease with stage 1 through stage 4 chronic kidney disease, or unspecified chronic kidney disease (principal); N18.3 Chronic kidney disease, stage 3 (moderate); J90 Pleural effusion, not elsewhere classified; R79.1 Abnormal coagulation profile; E11.22 Type 2 diabetes mellitus with diabetic chronic kidney disease; E78.00 Pure hypercholesterolemia, unspecified; K21.9 Gastro-esophageal reflux disease without esophagitis; Z88.8 Allergy status to other drugs, medicaments and biological substances; Z79.899 Other long term (current) drug therapy; Z79.4 Long term (current) use of insulin
CPT/HCPCS: 36415; 71010; 80053; 83605; 83880; 84484; 85025; 85379; 87040; 93005; 99285

== ENCOUNTER 2017-10-21 21:35 | Emergency (ER) | payer OTHER ==
[2017-10-21] MEDS ORDERED: Aspirin 81 MG Tab.Chew PO ONE (21:41)
[2017-10-21] MEDS ORDERED: Nitroglycerin 0.4 MG Tab.SL SL ONE (21:46)
[2017-10-21] MEDS ORDERED: Nitroglycerin 0.4 MG Tab.SL ONE (21:49)
--- NOTE | 2017-10-21 21:49 | EDM.PDOC ---
ED HPI GENERAL MEDICAL PROBLEM - General Stated Complaint: POSSIBLE HEART ATTACK Time Seen by Provider: 10/21/17 21:40 Source of Information: Reports: Patient History Limitations: Reports: No Limitations - History of Present Illness INITIAL COMMENTS - FREE TEXT/NARRATIVE: This 42 yo male patient reports to the ED with chest pain and increased shortness of breath. The patient reports that he has been shivering all day along with generalized body aches. The patient reports his symptoms started at 1500 today. The patient reports that he took a Nitro at 1500 which decreased his symptoms. The patient got home from work, took a nap and woke up with increased chest pain to the left side of his chest radiating to his left arm and shortness of breath. The patient is scheduled for a triple bypass on at [facility]. The patient has a history of CHF, diabetes along with the cardiac history. Onset: Today Onset Date: 10/21/17 Onset Time: 15:00 Location: Reports: Chest, Upper Extremity, Left Quality: Reports: Ache, Dull Severity: Severe Improves with: Reports: Medication (Nitro (taken at 1500)) Worsens with: Reports: None Associated Symptoms: Reports: Chest Pain Treatments RELIGION DEPARTMENT CHAIR: Reports: Nitroglycerin Generalized Pain Score (Numeric/FACES): 3 - Related Data Allergies Allergy/AdvReac Type Severity Reaction Status Date / Time cefepime Allergy Liver Verified 10/21/17 22:03 Problems Home Meds: Home Meds Insulin Glarg,Human.Rec.Analog [LantUS Solostar] 25 units INJECT BEDTIME [History] Insulin Aspart [NovoLOG] 22 units SQ TID 12/26/16 [History] Metoprolol Succinate [Toprol XL] 100 mg PO DAILY 12/26/16 [History] Losartan/Hydrochlorothiazide [Losartan-HCTZ 100-25 MG] 0.5 each PO DAILY [History] Allopurinol [Zyloprim] 100 mg PO DAILY 05/06/17 [History] Chlorthalidone 25 mg PO DAILY 05/06/17 [History] Cholecalciferol (Vitamin D3) [Vitamin D] 1,000 units PO DAILY 05/06/17 [History] Sildenafil [Viagra] 100 mg PO ASDIRECTED PRN 05/06/17 [History] Fluticasone Propionate [Flovent] 07/06/17 [History] Ipratropium/Albuterol Sulfate [Iprat-Albut 0.5-3(2.5) mg/3 ml] 07/06/17 [ History] Aspirin 10/21/17 [History] Nitroglycerin 0.4 10/21/17 [History] Torsemide [Demadex] 10/21/17 [History] Past Medical History HEENT History: Reports: None, Impaired Vision Other HEENT History: wears glasses Cardiovascular History: Reports: Cardiomyopathy, High Cholesterol, Hypertension , Other (See Below) Other Cardiovascular History: hypertrophic cardiomyopathy Respiratory History: Reports: None Gastrointestinal History: Reports: GERD Genitourinary History: Reports: Renal Calculus, Other (See Below) Other Genitourinary History: "stage 3 kidney disease" Musculoskeletal History: Reports: Gout, Osteoarthritis Neurological History: Reports: None Psychiatric History: Reports: None Endocrine/Metabolic History: Reports: Diabetes, Type II Hematologic History: Reports: None Immunologic History: Reports: None Oncologic (Cancer) History: Reports: None Dermatologic History: Reports: None - Infectious Disease History Infectious Disease History: Reports: Chicken Pox, MRSA - Past Surgical History Head Surgeries/Procedures: Reports: None GI Surgical History: Reports: Cholecystectomy, EGD Social & Family History - Family History Family Medical History: Noncontributory - Tobacco Use Smoking Status *Q: Never Smoker Second Hand Smoke Exposure: No - Caffeine Use Caffeine Use: Reports: Coffee - Recreational Drug Use Recreational Drug Use: No ED ROS GENERAL - Review of Systems Review Of Systems: ROS reveals no pertinent complaints other than HPI. ED EXAM, GENERAL - Physical Exam Exam: See Below Exam Limited By: No Limitations General Appearance: Alert, WD/WN, Severe Distress Eye Exam: Bilateral Eye: EOMI, Normal Inspection, PERRL Ears: Normal External Exam, Normal Canal, Hearing Grossly Normal, Normal TMs Nose: Normal Inspection, Normal Mucosa, No Blood Throat/Mouth: Normal Inspection, Normal Lips, Normal Teeth, Normal Gums, Normal Oropharynx, Normal Voice, No Airway Compromise Neck: Normal Inspection, Supple, Non-Tender, Full Range of Motion Respiratory/Chest: No Respiratory Distress, Lungs Clear, Normal Breath Sounds, No Accessory Muscle Use, Chest Non-Tender Cardiovascular: Normal Peripheral Pulses, Regular Rate, Rhythm, No Edema, No Gallop, No JVD, No Murmur, No Rub GI/Abdominal: Normal Bowel Sounds, Soft, Non-Tender, No Organomegaly, No Distention, No Abnormal Bruit, No Mass (Male) Exam: Deferred Rectal (Males) Exam: Deferred Back Exam: Normal Inspection, Full Range of Motion, NT Extremities: Normal Inspection, Normal Range of Motion, Non-Tender, Normal Capillary Refill, No Pedal Edema Neurological: Alert, Oriented, CN II-XII Intact, Normal Cognition, Normal Gait, Normal Reflexes, No Motor/Sensory Deficits Psychiatric: Normal Affect, Normal Mood Skin Exam: Warm, Dry, Intact, Normal Color, No Rash Lymphatic: No Adenopathy Course - Vital Signs Last Recorded V/S: Last Vital Signs Temp 38.0 C 10/21/17 21:51 Pulse 103 H 10/21/17 21:51 Resp 24 H 10/21/17 21:51 BP 152/88 H 10/21/17 21:51 Pulse Ox 93 L 10/21/17 21:51 - Orders/Labs/Meds Orders: Active Orders 24 hr Category Date Time Status EKG Documentation Completion [RC] URGENT Care 10/21/17 21:36 Active Labs: Laboratory Tests 10/21/17 10/21/17 Range/Units 21:45 21:45 WBC 10.6 H (5.0-10.0) 10^3/uL RBC 4.74 (4.6-6.2) 10^6/uL Hgb 13.9 L (14.0-18.0) g/dL Hct 41.8 (40.0-54.0) % MCV 88.2 (80-100) fL MCH 29.3 (27.0-34.0) pg MCHC 33.3 (33.0-35.0) g/dL Plt Count 191 D (150-450) 10^3/uL Neut % (Auto) 76.2 H (42.2-75.2) % Lymph % (Auto) 13.7 L (20.5-50.1) % [place] % (Auto) 7.8 (2-8) % Eos % (Auto) 1.9 (1.0-3.0) % Baso % (Auto) 0.4 (0.0-1.0) % Sodium 135 (135-145) mmol/L Potassium 4.5 (3.6-5.0) mmol/L Chloride 99 L (101-111) mmol/L Carbon Dioxide 27.0 (21.0-31.0) mmol/L Anion Gap 13.5 BUN 47 H (7-18) mg/dL Creatinine 1.4 H (0.6-1.3) mg/dL Est Cr Clr Drug Dosing 91.10 mL/min Estimated GFR (MDRD) 56 BUN/Creatinine Ratio 33.57 Glucose 249 H (74-105) mg/dL Calcium 9.2 (8.4-10.2) mg/dl Total Bilirubin 0.8 (0.2-1.0) mg/dL AST 26 (10-42) IU/L ALT 26 (10-60) IU/L Alkaline Phosphatase 98 (42-121) IU/L Troponin I < 0.02 (0.00-0.02) ng/ml Total Protein 7.5 (6.7-8.2) g/dl Albumin 3.9 (3.2-5.5) g/dl Globulin 3.6 Albumin/Globulin Ratio 1.08 Meds: Medications Discontinued Medications Generic Name Dose Route Start Last Admin Trade Name Freq PRN Reason Stop Dose Admin Aspirin 324 mg 10/21/17 21:41 10/21/17 21:48 Aspirin PO 10/21/17 21:42 324 mg ONETIME ONE Administration Nitroglycerin 0.4 mg 10/21/17 21:46 10/21/17 21:50 Nitrostat SL 10/21/17 21:47 0.4 mg ONETIME ONE Administration Nitroglycerin Confirm 10/21/17 21:49 Nitrostat Administered 10/21/17 21:50 Dose 0.4 mg .ROUTE .STK-MED ONE Departure - Departure Time of Disposition: 23:06 Disposition: Home, Self-Care 01 Condition: Fair Clinical Impression: Acute angina Instructions: Nonspecific Chest Pain, [id number] Forms: ED Department Discharge Care Plan Goals: The patient was advised of the examination, lab, EKG and x-ray results during the visit. The patient was encouraged to continue with his current medications as prescribed. If the patient has any additional symptoms or further concerns, the patient should either follow-up with his primary care facility or return to the emergency department. - My Orders Last 24 Hours: My Active Orders 10/21/17 21:36 EKG Documentation Completion [RC] URGENT - Assessment/Plan Last 24 Hours: My Active Orders 10/21/17 21:36 EKG Documentation Completion [RC] URGENT
[2017-10-21 22:03] VITALS: BP 152/88
[2017-10-21 22:10] LABS: CHLORIDE,CL 99 mmol/L (101-111); SODIUM,NA 135 mmol/L (135-145)
== END 2017-10-21 23:11 | disposition home or self-care (01) ==
LOC: DL.ED 21:35
DX: I20.9 Angina pectoris, unspecified (principal); I12.9 Hypertensive chronic kidney disease with stage 1 through stage 4 chronic kidney disease, or unspecified chronic kidney disease; N18.3 Chronic kidney disease, stage 3 (moderate); E11.22 Type 2 diabetes mellitus with diabetic chronic kidney disease; E78.00 Pure hypercholesterolemia, unspecified; Z88.1 Allergy status to other antibiotic agents; Z79.4 Long term (current) use of insulin
CPT/HCPCS: 36415; 71045; 80053; 84484; 85025; 87804; 93005; 99285; A9270

== ENCOUNTER 2018-01-19 08:29 | Emergency (ER) | payer OTHER ==
--- NOTE | 2018-01-19 08:43 | EDM.PDOC ---
<Elia Velazquez - Last Filed: 01/19/18 08:43> ED HPI GENERAL MEDICAL PROBLEM - General Chief Complaint: Chest Pain Stated Complaint: [id number] HEART PALIPITATION DIZZY RECENT HEART SURG Time Seen by Provider: 01/19/18 08:43 Source of Information: Reports: Patient, Old Records, RN, RN Notes Reviewed History Limitations: Reports: No Limitations - Related Data Allergies Allergy/AdvReac Type Severity Reaction Status Date / Time cefepime Allergy Liver Verified 01/19/18 08:38 Problems Home Meds: Home Meds Insulin Glarg,Human.Rec.Analog [LantUS Solostar] 28 units INJECT BEDTIME [History] Insulin Aspart [NovoLOG] 12 units SQ TID 12/26/16 [History] Allopurinol [Zyloprim] 200 mg PO DAILY 05/06/17 [History] Cholecalciferol (Vitamin D3) [Vitamin D] 1,000 units PO DAILY 05/06/17 [History] Aspirin 81 mg PO DAILY 10/21/17 [History] Nitroglycerin 0.4 mg SL ASDIRECTED PRN 10/21/17 [History] Torsemide [Demadex] 20 mg PO DAILY 10/21/17 [History] Acetaminophen [Acetaminophen Extra Strength] 500 mg PO ASDIRECTED PRN 12/05/17 [ History] Albuterol Sulfate [Proair Respiclick] 2 puff IH Q4HR PRN 12/05/17 [History] Ferrous Fumarate/Vitamin C [Vitron-C] 1 tab PO DAILY 12/05/17 [History] Ranitidine HCl [Ranitidine] 150 mg PO DAILY 12/05/17 [History] atorvaSTATin [Lipitor] 20 mg PO DAILY 12/05/17 [History] Isosorbide Mononitrate [Imdur] 30 mg PO DAILY 12/07/17 [History] Amiodarone [Cordarone] 200 mg PO DAILY 01/19/18 [History] Past Medical History HEENT History: Reports: None, Impaired Vision Other HEENT History: wears glasses Cardiovascular History: Reports: Bypass, CAD, Cardiomyopathy, High Cholesterol, Hypertension, SOB on Exertion, Other (See Below) Other Cardiovascular History: hypertrophic cardiomyopathy Respiratory History: Reports: Asthma, SOB Gastrointestinal History: Reports: GERD Genitourinary History: Reports: Renal Calculus, Other (See Below) Other Genitourinary History: "stage 3 kidney disease" Musculoskeletal History: Reports: Arthritis, Gout, Osteoarthritis Neurological History: Reports: Neuropathy, Peripheral Psychiatric History: Reports: None Endocrine/Metabolic History: Reports: Diabetes, Type II Hematologic History: Reports: None Immunologic History: Reports: None Oncologic (Cancer) History: Reports: None Dermatologic History: Reports: None - Infectious Disease History Infectious Disease History: Reports: Chicken Pox, MRSA - Past Surgical History Head Surgeries/Procedures: Reports: None Cardiovascular Surgical History: Reports: Coronary Artery Bypass, Other (See Below) Other Cardiovascular Surgeries/Procedures: CABG oct 2017 GI Surgical History: Reports: Cholecystectomy, EGD, Other (See Below) Other GI Surgeries/Procedures: cyst on liver Social & Family History - Family History Family Medical History: Noncontributory - Tobacco Use Smoking Status *Q: Never Smoker Second Hand Smoke Exposure: No - Caffeine Use Caffeine Use: Reports: Coffee - Recreational Drug Use Recreational Drug Use: No Course - Vital Signs Last Recorded V/S: Last Vital Signs Temp 97.8 F 01/19/18 08:40 Pulse 82 01/19/18 09:40 Resp 18 01/19/18 08:40 BP 165/97 H 01/19/18 09:40 Pulse Ox 99 01/19/18 08:40 - Orders/Labs/Meds Orders: Active Orders 24 hr Category Date Time Status EKG 12 Lead [EKG Documentation Completion] [RC] STAT Care 01/19/18 08:45 Active Peripheral IV Care [RC] . DIRECTED Care 01/19/18 08:46 Active Sodium Chloride 0.9% [Saline Flush] Med 01/19/18 08:45 Active 10 ml FLUSH ASDIRECTED PRN Peripheral IV Insertion Adult [OM.PC] Stat Oth 01/19/18 08:45 Ordered Medication Orders Sodium Chloride (Saline Flush) 10 ml FLUSH ASDIRECTED PRN PRN Reason: Keep Vein Open Labs: Laboratory Tests 01/19/18 01/19/18 01/19/18 Range/Units 08:48 08:48 08:48 WBC 7.4 (5.0-10.0) 10^3/uL RBC 4.47 L (4.6-6.2) 10^6/uL Hgb 12.9 L (14.0-18.0) g/dL Hct 40.5 (40.0-54.0) % MCV 90.6 (80-100) fL MCH 28.9 (27.0-34.0) pg MCHC 31.9 L (33.0-35.0) g/dL Plt Count 250 (150-450) 10^3/uL Neut % (Auto) 63.3 (42.2-75.2) % Lymph % (Auto) 20.2 L (20.5-50.1) % [place] % (Auto) 11.1 H (2-8) % Eos % (Auto) 5.1 H (1.0-3.0) % Baso % (Auto) 0.3 (0.0-1.0) % PT 9.6 (9.0-12.0) SEC INR 1.0 (0.9-1.2) APTT 23.9 (22.0-34.0) SEC Sodium 136 (135-145) mmol/L Potassium 4.5 (3.6-5.0) mmol/L Chloride 104 (101-111) mmol/L Carbon Dioxide 26.0 (21.0-31.0) mmol/L Anion Gap 10.5 BUN 26 H (7-18) mg/dL Creatinine 1.4 H (0.6-1.3) mg/dL Est Cr Clr Drug Dosing 91.10 mL/min Estimated GFR (MDRD) 56 BUN/Creatinine Ratio 18.57 Glucose 176 H (74-105) mg/dL Calcium 9.0 (8.4-10.2) mg/dl Total Bilirubin 0.7 (0.2-1.0) mg/dL AST 22 (10-42) IU/L ALT 18 (10-60) IU/L Alkaline Phosphatase 114 (42-121) IU/L Creatine Kinase (26-174) IU/L Creatine Kinase Index (0-2.4) % CK-MB (CK-2) (0.4-4.7) ng/mL Troponin I < 0.02 (0.00-0.02) ng/ml B-Natriuretic Peptide 131 H (0-100) pg/ml Total Protein 7.7 (6.7-8.2) g/dl Albumin 3.7 (3.2-5.5) g/dl Globulin 4.0 Albumin/Globulin Ratio 0.93 05/03/18 Range/Units 08:48 WBC (5.0-10.0) 10^3/uL RBC (4.6-6.2) 10^6/uL Hgb (14.0-18.0) g/dL Hct (40.0-54.0) % MCV (80-100) fL MCH (27.0-34.0) pg MCHC (33.0-35.0) g/dL Plt Count (150-450) 10^3/uL Neut % (Auto) (42.2-75.2) % Lymph % (Auto) (20.5-50.1) % [place] % (Auto) (2-8) % Eos % (Auto) (1.0-3.0) % Baso % (Auto) (0.0-1.0) % PT (9.0-12.0) SEC INR (0.9-1.2) APTT (22.0-34.0) SEC Sodium (135-145) mmol/L Potassium (3.6-5.0) mmol/L Chloride (101-111) mmol/L Carbon Dioxide (21.0-31.0) mmol/L Anion Gap BUN (7-18) mg/dL Creatinine (0.6-1.3) mg/dL Est Cr Clr Drug Dosing mL/min Estimated GFR (MDRD) BUN/Creatinine Ratio Glucose (74-105) mg/dL Calcium (8.4-10.2) mg/dl Total Bilirubin (0.2-1.0) mg/dL AST (10-42) IU/L ALT (10-60) IU/L Alkaline Phosphatase (42-121) IU/L Creatine Kinase 186 H (26-174) IU/L Creatine Kinase Index 3.1 H (0-2.4) % CK-MB (CK-2) 5.80 H (0.4-4.7) ng/mL Troponin I (0.00-0.02) ng/ml B-Natriuretic Peptide (0-100) pg/ml Total Protein (6.7-8.2) g/dl Albumin (3.2-5.5) g/dl Globulin Albumin/Globulin Ratio Meds: Medications Generic Name Dose Route Start Last Admin Trade Name Freq PRN Reason Stop Dose Admin Sodium Chloride 10 ml 01/19/18 08:45 Saline Flush FLUSH ASDIRECTED PRN Keep Vein Open Discontinued Medications Generic Name Dose Route Start Last Admin Trade Name Elmer PRN Reason Stop Dose Admin Aspirin 324 mg 01/19/18 09:13 01/19/18 09:16 Aspirin PO 01/19/18 09:14 324 mg ONETIME ONE Administration Departure - Departure Disposition: Home, Self-Care 01 Clinical Impression: CKD (chronic kidney disease) stage 3, GFR 30-59 ml/min, Intermittent palpitations Diabetes Qualifiers: Diabetes mellitus type: type 2 Diabetes mellitus superintendent container terminal insulin use: unspecified superintendent container terminal insulin use status Diabetes mellitus complication status: with unspecified complications Qualified Code(s): E11.8 - Type 2 diabetes mellitus with unspecified complications HTN (hypertension) Qualifiers: Hypertension type: unspecified Qualified Code(s): I10 - Essential (primary) hypertension Instructions: Hypertension, [id number] Forms: ED Department Discharge Additional Instructions: Make appointment to follow up with Dr. Sheppard for hypertension management and Cardiac monitoring. Return to ED if develop sharp chest pain, pressure on chest, increased sweating , with shortness of breath. Care Plan Goals: Follow up with Dr Sheppard <Anneliese Michelle - Last Filed: 01/19/18 10:17> ED HPI GENERAL MEDICAL PROBLEM - General Source of Information: Reports: Patient, Family, RN History Limitations: Reports: No Limitations - History of Present Illness INITIAL COMMENTS - FREE TEXT/NARRATIVE: Patient was leaving for work at 0730 when he felt dizzy, SOB, and "it felt like everything was in a dream". Denies chest pain, chest pressure, or diaphoresis at this time. Patient drove to work in during this episode. Blood pressure of 170/120 was taken at work ([employer]). This is the first time he has felt this way since his CABG X4. Patient is 2 months post-CABG X4, done 11/16 at [facility] by Dr. Mariano. Family history of Cardiovascular disease , mother with CHF, father had CABG at age 50. Patient has been on a vegan diet since 07/2017, mother with reported "Fe deficit anemia". Patient with environmental allergies, having clear eye drainage and sinus pressure for one week. Last week, patient had laser retinal eye surgery for diabetes related "retina spots" Onset: Today, Sudden Onset Date: 01/19/18 Onset Time: 07:30 Duration: Hour(s):, Improving Location: Reports: Head, Chest Quality: Reports: Ache. Denies: Pressure Severity: Moderate Improves with: Reports: Rest Worsens with: Reports: None Context: Reports: Activity Associated Symptoms: Reports: Shortness of Breath. Denies: Chest Pain, Cough, Diaphoresis Treatments [employer]: Reports: Aspirin Chest Pain Score (Numeric/FACES): 1 ED ROS GENERAL - Review of Systems Review Of Systems: See Below Constitutional: Reports: Chills, Night Sweats. Denies: Weakness HEENT: Reports: Eye Discharge (clear, post retinal laser surgery ), Glasses. Denies: Vision Change (Diabetes related vision issues ) Respiratory: Reports: Shortness of Breath, Cough. Denies: Pleuritic Chest Pain Cardiovascular: Reports: Blood Pressure Problem, Lightheadedness, Syncope. Denies: Chest Pain Endocrine: Reports: High Glucose (Type 2 diabetse ) GI/Abdominal: Denies: Abdominal Pain, Bloody Stool, Constipation, Diarrhea, Nausea : Denies: Dysuria, Flank Pain Musculoskeletal: Denies: Neck Pain, Shoulder Pain, Back Pain, Leg Pain Skin: Denies: Cyanosis, Pallor Neurological: Reports: Dizziness. Denies: Trouble Speaking, Change in Speech Psychiatric: Reports: No Symptoms Hematologic/Lymphatic: Reports: Anemia (mother w/ anemia, Patient w/ vegan diet and Fe supplement ) Immunologic: Reports: Environmental Allergy ED EXAM, GENERAL - Physical Exam Exam: See Below Exam Limited By: No Limitations General Appearance: Alert, WD/WN, No Apparent Distress Eye Exam: Bilateral Eye: Normal Fundi Ears: Normal External Exam, Normal Canal, Normal TMs Ear Exam: Bilateral Ear: TM normal Nose: Normal Inspection, Normal Mucosa Throat/Mouth: Normal Lips, Normal Teeth, Normal Gums, No Airway Compromise Head: Atraumatic, Normocephalic Neck: Normal Inspection, Supple. No: Carotid Bruit Respiratory/Chest: No Respiratory Distress, Lungs Clear, Normal Breath Sounds, No Accessory Muscle Use, Chest Non-Tender. No: Respiratory Distress, Crackles, Pleural Rub Cardiovascular: Normal Peripheral Pulses, Regular Rate, Rhythm, No Edema Peripheral Pulses: 2+: Radial (L), Radial (R) Psychiatric: Normal Affect, Normal Mood Skin Exam: Warm, Dry, Normal Color. No: Diaphoretic, Pallor EKG INTERPRETATION EKG Date: 01/19/18 Time: 08:39 Comparison: Change From Previous EKG (last EKG 10/21/17 prior to CABG) Departure - Departure Time of Disposition: 10:12 Condition: Good
[2018-01-19] MEDS ORDERED: Sodium Chloride 0.9% 10 ML Syringe FLUSH PRN (08:45)
[2018-01-19] MEDS ORDERED: Aspirin 81 MG Tab.Chew PO ONE (09:13)
[2018-01-19 09:21] LABS: ANION GAP 10.5; CHLORIDE,CL 104 mmol/L (101-111); SODIUM,NA 136 mmol/L (135-145)
[2018-01-19 09:50] VITALS: BP 165/97
--- NOTE | 2018-01-22 15:48 | EKG ---
01/19/2018 - JESSICA WARD - FINDINGS: EKG per my reading, shows sinus rhythm at the rate of 82 with inferior Q-waves. MOD /[id number]
== END 2018-01-19 10:24 | disposition home or self-care (01) ==
LOC: DL.ED 08:29
DX: I12.9 Hypertensive chronic kidney disease with stage 1 through stage 4 chronic kidney disease, or unspecified chronic kidney disease (principal); E11.22 Type 2 diabetes mellitus with diabetic chronic kidney disease; N18.3 Chronic kidney disease, stage 3 (moderate); E11.8 Type 2 diabetes mellitus with unspecified complications; J45.909 Unspecified asthma, uncomplicated; Z88.8 Allergy status to other drugs, medicaments and biological substances; Z79.4 Long term (current) use of insulin; Z79.899 Other long term (current) drug therapy
CPT/HCPCS: 36415; 71045; 80053; 82550; 82553; 83880; 84484; 85025; 85610; 85730; 93005; 99285; A9270

== ENCOUNTER 2020-02-22 15:16 | Emergency (ER) | payer BC, OTHER ==
[2020-02-22 15:38] VITALS: BP 137/71; PULSE 72
[2020-02-22] MEDS ORDERED: Sodium Chloride 0.9% 10 ML Syringe FLUSH PRN (15:39)
[2020-02-22] MEDS ORDERED: Pantoprazole 40 MG Vial IVPUSH ONE (15:41)
[2020-02-22] MEDS ORDERED: Ondansetron 4 MG/2 ML SDV IV ONE (15:42)
[2020-02-22 16:13] LABS: ANION GAP 9.6 mEq/L (7-13)
--- NOTE | 2020-02-22 16:23 | EDM.PDOC ---
Scribed by Winnie Chauhan 02/22/20 1601 for Elia Velazquez MD ED HPI GENERAL MEDICAL PROBLEM - General Chief Complaint: Gastrointestinal Problem Stated Complaint: WOKE UP THROWING UP BLOOD Time Seen by Provider: 02/22/20 15:35 Source of Information: Reports: Patient, RN, RN Notes Reviewed History Limitations: Reports: No Limitations - History of Present Illness INITIAL COMMENTS - FREE TEXT/NARRATIVE: Patient presents to ER by POV with complaint of emesis x1 this morning at 0730hrs. that had large amount of blood in it. He states it only happened this morning and has had none since. Made appointment at clinic to be seen but clinic told him to come to ED. Denies abdominal pain, lightheadedness, syncope or chest pain. Patient is on chronic iron supplementation says his stools are always dark but have not been bloody. Has had some recent heartburn/acid reflux. Denies fevers or chills. Denies cough or shortness of breath. Denies COVID contact or exposure. Onset: Today, Sudden Duration: Resolved Prior to Arrival Location: Reports: Abdomen Quality: Reports: Burning Severity: Mild Improves with: Reports: None Worsens with: Reports: None Associated Symptoms: Reports: No Other Symptoms - Related Data Allergies Allergy/AdvReac Type Severity Reaction Status Date / Time cefepime Allergy Liver Verified 02/22/20 15:35 Problems Home Meds: Home Meds Insulin Glarg,Human.Rec.Analog [LantUS Solostar] 32 units INJECT ASDIRECTED [History] Insulin Aspart [NovoLOG] 12 units SQ ASDIRECTED 12/26/16 [History] Allopurinol [Zyloprim] 200 mg PO DAILY 05/06/17 [History] Cholecalciferol (Vitamin D3) [Vitamin D] 1,000 units PO DAILY 05/06/17 [History] Aspirin 81 mg PO DAILY 10/21/17 [History] Nitroglycerin 0.4 mg SL ASDIRECTED PRN 10/21/17 [History] Albuterol Sulfate [Proair Respiclick] 2 puff IH Q4HR PRN 12/05/17 [History] Ferrous Fumarate/Vitamin C [Vitron-C] 1 tab PO DAILY 12/05/17 [History] atorvaSTATin [Lipitor] 20 mg PO BID 12/05/17 [History] Isosorbide Mononitrate [Imdur] 15 mg PO DAILY 12/07/17 [History] Furosemide [Lasix] 80 mg PO BID 05/23/18 [History] Montelukast [Singulair] 10 mg PO DAILY 05/23/18 [History] Multivitamin [Multivitamins] 1 tab PO DAILY 05/23/18 [History] carvediloL [Carvedilol] 6.25 mg PO BID 05/23/18 [History] Losartan [Cozaar] 25 mg PO DAILY 07/10/18 [History] Calcium Carbonate/Vitamin D3 [Oyster Shell 500-Vit D3 200 Tb] 1 tab PO DAILY [History] Past Medical History HEENT History: Reports: None, Impaired Vision Other HEENT History: wears glasses Cardiovascular History: Reports: Bypass, CAD, Cardiomyopathy, High Cholesterol, Hypertension, SOB on Exertion, Other (See Below) Other Cardiovascular History: hypertrophic cardiomyopathy Respiratory History: Reports: Asthma, SOB Other Respiratory History: c-pap with o2. Gastrointestinal History: Reports: GERD, GI Bleed Genitourinary History: Reports: Chronic Renal Insuffiency, Renal Calculus, Other (See Below) (Chronic microscopic hematuria) Other Genitourinary History: "stage 3 kidney disease" Musculoskeletal History: Reports: Amputation, Arthritis, Gout, Osteoarthritis Other Musculoskeletal History: collasped arch in Rt. foot. Wears a boot. Neurological History: Reports: Neuropathy, Peripheral Psychiatric History: Reports: None Endocrine/Metabolic History: Reports: Diabetes, Type II Hematologic History: Reports: None Immunologic History: Reports: None Oncologic (Cancer) History: Reports: None Dermatologic History: Reports: None - Infectious Disease History Infectious Disease History: Reports: Chicken Pox, MRSA - Past Surgical History Head Surgeries/Procedures: Reports: None Cardiovascular Surgical History: Reports: Coronary Artery Bypass, Other (See Below) Other Cardiovascular Surgeries/Procedures: CABG oct 2017 GI Surgical History: Reports: Cholecystectomy, EGD, Other (See Below) Other GI Surgeries/Procedures: cyst on liver Musculoskeletal Surgical History: Reports: Amputation Social & Family History - Family History Family Medical History: Noncontributory - Caffeine Use Caffeine Use: Reports: None - Living Situation & Occupation Living situation: Reports: with Family ED ROS GENERAL - Review of Systems Review Of Systems: Comprehensive ROS is negative, except as noted in HPI. ED EXAM, GI/ABD - Physical Exam Exam: See Below Exam Limited By: No Limitations General Appearance: Alert, WD/WN, No Apparent Distress Eyes: Bilateral: Normal Appearance Ears: Normal External Exam, Normal Canal, Hearing Grossly Normal, Normal TMs Nose: Normal Inspection, Normal Mucosa, No Blood Throat/Mouth: Normal Inspection, Normal Lips, Normal Teeth, Normal Gums, Normal Oropharynx, Normal Voice, No Airway Compromise Head: Atraumatic, Normocephalic Neck: Normal Inspection, Supple, Non-Tender, Full Range of Motion Respiratory/Chest: No Respiratory Distress, Lungs Clear, Normal Breath Sounds, No Accessory Muscle Use, Chest Non-Tender Cardiovascular: Normal Peripheral Pulses, Regular Rate, Rhythm, No Edema, No Gallop, No JVD, No Murmur, No Rub GI/Abdominal Exam: Normal Bowel Sounds, Soft, Non-Tender, No Organomegaly, No Distention, No Abnormal Bruit, No Mass, Pelvis Stable, Other (obese) (Male) Exam: Deferred Rectal (Males) Exam: Deferred Back Exam: Normal Inspection, Full Range of Motion, NT Extremities: Other (Left lower extremity normal. Right BKA.) Neurological: Alert, Oriented, CN II-XII Intact, Normal Cognition, Normal Gait, Normal Reflexes, No Motor/Sensory Deficits Psychiatric: Normal Affect, Normal Mood Skin Exam: Warm, Dry, Intact, Normal Color, No Rash Course - Vital Signs Last Recorded V/S: Last Vital Signs Temp 98.0 F 02/22/20 15:36 Pulse 72 02/22/20 15:36 Resp 18 02/22/20 15:36 BP 137/71 02/22/20 15:36 Pulse Ox 98 02/22/20 15:36 - Orders/Labs/Meds Orders: Active Orders 24 hr Category Date Time Status Peripheral IV Care [RC] . DIRECTED Care 02/22/20 15:40 Active INR,PT,PROTHROMBIN TIME [COAG] Stat Lab 02/22/20 15:49 Results LACTIC ACID [CHEM] Stat Lab 02/22/20 15:49 Received PTT,PARTIAL THROMBOPLSTIN TIME [COAG] Stat Lab 02/22/20 15:49 Results Sodium Chloride 0.9% [Saline Flush] Med 02/22/20 15:39 Active 10 ml FLUSH ASDIRECTED PRN Peripheral IV Insertion Adult [OM.PC] Stat Oth 02/22/20 15:40 Ordered Medication Orders Sodium Chloride (Saline Flush) 10 ml FLUSH ASDIRECTED PRN PRN Reason: Keep Vein Open Last Admin: 02/22/20 16:16 Dose: 10 ml Labs: Laboratory Tests 02/22/20 02/22/20 02/22/20 Range/Units 15:49 15:49 15:49 WBC 7.7 (5.0-10.0) 10^3/uL RBC 4.39 L (4.6-6.2) 10^6/uL Hgb 14.2 (14.0-18.0) g/dL Hct 42.3 (40.0-54.0) % MCV 96.4 (80-100) fL MCH 32.3 (27.0-34.0) pg MCHC 33.6 (33.0-35.0) g/dL Plt Count 206 (150-450) 10^3/uL Neut % (Auto) 70.2 (42.2-75.2) % Lymph % (Auto) 17.9 L (20.5-50.1) % Door % (Auto) 9.3 H (2-8) % Eos % (Auto) 2.2 (1.0-3.0) % Baso % (Auto) 0.4 (0.0-1.0) % APTT 23.0 (22.0-34.0) SEC Sodium 139 (136-145) mmol/L Potassium 4.6 (3.5-5.1) mmol/L Chloride 103 (98-107) mmol/L Carbon Dioxide 31 (21-32) mmol/L Anion Gap 9.6 (7-13) mEq/L BUN 50 H (7-18) mg/dL Creatinine 2.50 H (0.70-1.30) mg/dL Est Cr Clr Drug Dosing 49.97 mL/min Estimated GFR (MDRD) 28 BUN/Creatinine Ratio 20.0 (No establ ref range) Glucose 157 H (74-99) mg/dL Calcium 8.8 (8.5-10.1) mg/dL Total Bilirubin 0.7 (0.2-1.0) mg/dL AST 23 (15-37) U/L ALT 28 (16-63) U/L Alkaline Phosphatase 119 H (46-116) U/L Total Protein 7.1 (6.4-8.2) g/dL Albumin 3.6 (3.4-5.0) g/dL Globulin 3.5 Albumin/Globulin Ratio 1.0 Amylase 49 (25-115) U/L Lipase 278 (73-393) U/L Meds: Medications Generic Name Dose Route Start Last Admin Trade Name Freq PRN Reason Stop Dose Admin Sodium Chloride 10 ml 02/22/20 15:39 02/22/20 16:16 Saline Flush FLUSH 10 ml ASDIRECTED PRN Administration Keep Vein Open Discontinued Medications Generic Name Dose Route Start Last Admin Trade Name Freq PRN Reason Stop Dose Admin Ondansetron HCl 4 mg 02/22/20 15:42 02/22/20 16:16 Zofran IV 02/22/20 15:43 4 mg ONETIME ONE Administration Pantoprazole Sodium 80 mg 02/22/20 15:41 02/22/20 16:15 Protonix Iv IVPUSH 02/22/20 15:42 80 mg .BOLUS ONE Administration Departure - Departure Time of Disposition: 16:21 Disposition: Home, Self-Care 01 Condition: Good Clinical Impression: Gastritis with bleeding Qualifiers: Gastritis type: unspecified gastritis Chronicity: acute Qualified Code(s): K29.01 - Acute gastritis with bleeding - Discharge Information *PRESCRIPTION DRUG MONITORING PROGRAM REVIEWED*: Not Applicable *COPY OF PRESCRIPTION DRUG MONITORING REPORT IN PATIENT SUBHASH: Not Applicable Instructions: Gastritis, Adult, [id number] Forms: ED Department Discharge Additional Instructions: Rx: Protonix 40mg Follow up in clinic next week for recheck. Return to ER if worse at any time. Sepsis Event Note - Evaluation Sepsis Screening Result: No Definite Risk - Focused Exam Vital Signs: Vital Signs Temp Pulse Resp BP Pulse Ox 02/22/20 15:36 98.0 F 72 18 137/71 98 Date Exam was Performed: 02/22/20 Time Exam was Performed: 16:21 - My Orders Last 24 Hours: My Active Orders 02/22/20 15:39 Sodium Chloride 0.9% [Saline Flush] 10 ml FLUSH ASDIRECTED PRN 02/22/20 15:40 Peripheral IV Care [RC] . DIRECTED Peripheral IV Insertion Adult [OM.PC] Stat 02/22/20 15:49 INR,PT,PROTHROMBIN TIME [COAG] Stat LACTIC ACID [CHEM] Stat PTT,PARTIAL THROMBOPLSTIN TIME [COAG] Stat - Assessment/Plan Last 24 Hours: My Active Orders 02/22/20 15:39 Sodium Chloride 0.9% [Saline Flush] 10 ml FLUSH ASDIRECTED PRN 02/22/20 15:40 Peripheral IV Care [RC] . DIRECTED Peripheral IV Insertion Adult [OM.PC] Stat 02/22/20 15:49 INR,PT,PROTHROMBIN TIME [COAG] Stat LACTIC ACID [CHEM] Stat PTT,PARTIAL THROMBOPLSTIN TIME [COAG] Stat I have read and agree with the documentation that has been completed regarding this visit. By signing this record, I attest that the documentation was completed in my physical presence and is an accurate record of the encounter.
== END 2020-02-22 16:32 | disposition home or self-care (01) ==
LOC: DL.ED 15:16
DX: K29.01 Acute gastritis with bleeding (principal); I25.10 Atherosclerotic heart disease of native coronary artery without angina pectoris; E78.00 Pure hypercholesterolemia, unspecified; I12.9 Hypertensive chronic kidney disease with stage 1 through stage 4 chronic kidney disease, or unspecified chronic kidney disease; E11.22 Type 2 diabetes mellitus with diabetic chronic kidney disease; E11.42 Type 2 diabetes mellitus with diabetic polyneuropathy; N18.3 Chronic kidney disease, stage 3 (moderate); J45.909 Unspecified asthma, uncomplicated; K21.9 Gastro-esophageal reflux disease without esophagitis; M10.9 Gout, unspecified; Z88.1 Allergy status to other antibiotic agents; Z79.82 Long term (current) use of aspirin; Z79.4 Long term (current) use of insulin; Z79.899 Other long term (current) drug therapy; Z99.81 Dependence on supplemental oxygen
CPT/HCPCS: 36415; 80053; 82150; 83605; 83690; 85025; 85610; 85730; 96374; 96375; 99284; C9113; J2405

== ENCOUNTER 2024-10-16 11:53 | Emergency (ER) | payer BC, OTHER ==
[2024-10-16] MEDS ORDERED: Sodium Chloride 0.9% 10 ML Syringe FLUSH PRN (12:02)
[2024-10-16] MEDS ORDERED: Aspirin 81 MG Tab.EC PO ONE (12:14)
[2024-10-16 12:17] LABS: BASOPHILS PERCENT AUTO 0.7 % (0.0-1.0); EOSINOPHILS PERCENT AUTO 1.3 % (1.0-3.0); HEMATOCRIT 37.4 % (40.0-54.0); HEMOGLOBIN 12.5 g/dL (14.0-18.0); LYMPHOCYTES PERCENT AUTO 18.5 % (20.5-50.1); MEAN CORPUSCULAR HEMOGLOBIN 31.3 pg (27.0-34.0); MEAN CORPUSCULAR HGB CONC 33.4 g/dL (33.0-35.0); MEAN CORPUSCULAR VOLUME 93.7 fL (80-100); MONOCYTES PERCENT AUTO 9.3 % (2-8); NEUTROPHILS PERCENT AUTO 70.2 % (42.2-75.2); PLATELET COUNT,PLT 211 10^3/uL (150-450); RED BLOOD CELL COUNT 3.99 10^6/uL (4.6-6.2)
[2024-10-16 12:37] LABS: B-TYPE NATRIURETIC PEPTIDE,BNP 163 pg/ml (0-100)
[2024-10-16 12:41] LABS: ALANINE AMINOTRANSFERASE,ALT 19 U/L (16-63); ALBUMIN 3.1 g/dL (3.4-5.0); ALKALINE PHOSPHATASE 78 U/L (46-116); ANION GAP 13.6 mEq/L (7-13); ASPARTATE AMNIOTRANSFERASE,AST 14 U/L (15-37); BILIRUBIN TOTAL 0.6 mg/dL (0.2-1.0); BLOOD UREA NITROGEN,BUN 64 mg/dL (7-18); BUN/CREATININE RATIO 9.5 (No establ ref range); CALCIUM 9.1 mg/dL (8.5-10.1); CARBON DIOXIDE,CO2 29 mmol/L (21-32); CHLORIDE,CL 103 mmol/L (98-107); GLUCOSE RANDOM 106 mg/dL (70-99); MAGNESIUM 2.1 mg/dL (1.8-2.4); PHOSPHORUS 5.6 mg/dL (2.6-4.7); POTASSIUM,K 4.6 mmol/L (3.5-5.1); PROTEIN TOTAL,TP 6.7 g/dL (6.4-8.2); SODIUM,NA 141 mmol/L (136-145)
[2024-10-16 12:43] LABS: A/G RATIO 0.86; C-REACTIVE PROTEIN < 0.50 ng/dL (<=0.50); CREATININE 6.77 mg/dL (0.70-1.30); ESTIMATED GFR 9 mL/min (>=60)
[2024-10-16 12:49] LABS: LACTIC ACID 0.6 mmol/L (0.4-2.0)
[2024-10-16 12:51] LABS: PROTHROMBIN TIME 10.5 SEC (9.0-12.0); PTT,PARTIAL THROMBOPLSTIN TIME 24.9 SEC (22.0-34.0)
[2024-10-16] MEDS: Aspirin 81 MG Tab.Chew PO ONE (12:58)
[2024-10-16] MEDS: Sodium Chloride 0.9% 500 ML IV SCH (13:07)
[2024-10-16] MEDS: hydrALAZINE 20 MG/ML SDV IVPUSH ONE (13:10)
[2024-10-16 13:22] VITALS: PULSE 75
[2024-10-16] MEDS ORDERED: Sodium Chloride 0.9% 500 ML IV SCH (13:45)
[2024-10-16] MEDS: Lactated Ringers 1,000 ML IV ONE (14:10)
[2024-10-16 15:06] VITALS: BP 158/92
[2024-10-16 15:24] LABS: ALANINE AMINOTRANSFERASE,ALT 22 U/L (16-63); ALBUMIN 3.1 g/dL (3.4-5.0); ALKALINE PHOSPHATASE 80 U/L (46-116); ANION GAP 12.6 mEq/L (7-13); ASPARTATE AMNIOTRANSFERASE,AST 13 U/L (15-37); BILIRUBIN TOTAL 0.7 mg/dL (0.2-1.0); BLOOD UREA NITROGEN,BUN 61 mg/dL (7-18); BUN/CREATININE RATIO 9.2 (No establ ref range); CALCIUM 9.1 mg/dL (8.5-10.1); CARBON DIOXIDE,CO2 29 mmol/L (21-32); CHLORIDE,CL 105 mmol/L (98-107); GLUCOSE RANDOM 92 mg/dL (70-99); POTASSIUM,K 4.6 mmol/L (3.5-5.1); PROTEIN TOTAL,TP 6.8 g/dL (6.4-8.2); SODIUM,NA 142 mmol/L (136-145)
[2024-10-16 15:26] LABS: A/G RATIO 0.84; ESTIMATED GFR 10 mL/min (>=60)
== END 2024-10-16 15:34 | disposition home or self-care (01) ==
LOC: DL.ED 11:53
DX: I12.9 Hypertensive chronic kidney disease with stage 1 through stage 4 chronic kidney disease, or unspecified chronic kidney disease (principal); N18.4 Chronic kidney disease, stage 4 (severe); R07.89 Other chest pain; I25.10 Atherosclerotic heart disease of native coronary artery without angina pectoris; E78.00 Pure hypercholesterolemia, unspecified; J45.909 Unspecified asthma, uncomplicated; K21.9 Gastro-esophageal reflux disease without esophagitis; M19.90 Unspecified osteoarthritis, unspecified site; E11.22 Type 2 diabetes mellitus with diabetic chronic kidney disease; Z90.49 Acquired absence of other specified parts of digestive tract; Z88.8 Allergy status to other drugs, medicaments and biological substances; Z79.82 Long term (current) use of aspirin; Z79.51 Long term (current) use of inhaled steroids; Z79.84 Long term (current) use of oral hypoglycemic drugs; Z79.4 Long term (current) use of insulin; Z79.899 Other long term (current) drug therapy
CPT/HCPCS: 36415; 71045; 80053; 82947; 83605; 83735; 83880; 84100; 84145; 84484; 85025; 85610; 85730; 86140; 87428; 93005; 96361; 96374; 99285; A9270; J0360; J7040; J7120

== ENCOUNTER 2024-10-18 09:33 | Emergency (ER) | payer BC, OTHER ==
[2024-10-18] MEDS ORDERED: Sodium Chloride 0.9% 10 ML Syringe FLUSH PRN ×2 (10:52)
[2024-10-18 11:04] LABS: BASOPHILS PERCENT AUTO 0.4 % (0.0-1.0); EOSINOPHILS PERCENT AUTO 1.8 % (1.0-3.0); HEMATOCRIT 38.1 % (40.0-54.0); HEMOGLOBIN 12.9 g/dL (14.0-18.0); LYMPHOCYTES PERCENT AUTO 12.1 % (20.5-50.1); MEAN CORPUSCULAR HEMOGLOBIN 31.8 pg (27.0-34.0); MEAN CORPUSCULAR HGB CONC 33.9 g/dL (33.0-35.0); MEAN CORPUSCULAR VOLUME 93.8 fL (80-100); MONOCYTES PERCENT AUTO 7.4 % (2-8); NEUTROPHILS PERCENT AUTO 78.3 % (42.2-75.2); PLATELET COUNT,PLT 204 10^3/uL (150-450); RED BLOOD CELL COUNT 4.06 10^6/uL (4.6-6.2); WHITE BLOOD CELL COUNT,WBC 7.1 10^3/uL (5.0-10.0)
[2024-10-18 11:21] LABS: PROTHROMBIN TIME 10.4 SEC (9.0-12.0)
[2024-10-18 11:31] LABS: ANION GAP 12.2 mEq/L (7-13); BILIRUBIN TOTAL 0.7 mg/dL (0.2-1.0); BUN/CREATININE RATIO 10.9 (No establ ref range); CALCIUM 8.9 mg/dL (8.5-10.1); EST CRCL DRUG DOSING (CG) 16.61 mL/min; POTASSIUM,K 5.2 mmol/L (3.5-5.1); PROTEIN TOTAL,TP 6.8 g/dL (6.4-8.2)
[2024-10-18 11:34] LABS: A/G RATIO 0.79; CREATININE 7.13 mg/dL (0.70-1.30)
[2024-10-18 14:23] VITALS: BP 181/104; PULSE 77
== END 2024-10-18 14:25 | disposition home or self-care (01) ==
LOC: DL.ED 09:33
DX: R07.89 Other chest pain (principal); E87.5 Hyperkalemia; I12.9 Hypertensive chronic kidney disease with stage 1 through stage 4 chronic kidney disease, or unspecified chronic kidney disease; N18.9 Chronic kidney disease, unspecified; I25.10 Atherosclerotic heart disease of native coronary artery without angina pectoris; E78.00 Pure hypercholesterolemia, unspecified; J45.909 Unspecified asthma, uncomplicated; K21.9 Gastro-esophageal reflux disease without esophagitis; M19.90 Unspecified osteoarthritis, unspecified site; E11.22 Type 2 diabetes mellitus with diabetic chronic kidney disease; Z86.16 Personal history of COVID-19; Z90.49 Acquired absence of other specified parts of digestive tract; Z88.8 Allergy status to other drugs, medicaments and biological substances; Z79.4 Long term (current) use of insulin; Z79.84 Long term (current) use of oral hypoglycemic drugs; Z79.82 Long term (current) use of aspirin; Z79.51 Long term (current) use of inhaled steroids; Z79.899 Other long term (current) drug therapy
CPT/HCPCS: 36415; 71045; 80053; 84484; 85025; 85610; 93005; 93010; 99284; 99285

== ENCOUNTER 2024-11-19 09:06 | Emergency (ER) | payer BC, OTHER ==
[2024-11-19] MEDS ORDERED: Sodium Chloride 0.9% 10 ML Syringe FLUSH PRN (09:34)
[2024-11-19 09:53] LABS: BASOPHILS PERCENT AUTO 0.6 % (0.0-1.0); HEMATOCRIT 37.4 % (40.0-54.0); HEMOGLOBIN 12.8 g/dL (14.0-18.0); LYMPHOCYTES PERCENT AUTO 13.5 % (20.5-50.1); MEAN CORPUSCULAR HEMOGLOBIN 31.6 pg (27.0-34.0); MEAN CORPUSCULAR HGB CONC 34.2 g/dL (33.0-35.0); MEAN CORPUSCULAR VOLUME 92.3 fL (80-100); MONOCYTES PERCENT AUTO 8.2 % (2-8); NEUTROPHILS PERCENT AUTO 75.7 % (42.2-75.2); PLATELET COUNT,PLT 252 10^3/uL (150-450); RED BLOOD CELL COUNT 4.05 10^6/uL (4.6-6.2); WHITE BLOOD CELL COUNT,WBC 6.4 10^3/uL (5.0-10.0)
[2024-11-19 10:11] LABS: PROTHROMBIN TIME 10.5 SEC (9.0-12.0); PTT,PARTIAL THROMBOPLSTIN TIME 25.6 SEC (22.0-34.0)
[2024-11-19 10:17] LABS: ALANINE AMINOTRANSFERASE,ALT 20 U/L (16-63); ALBUMIN 3.2 g/dL (3.4-5.0); ALKALINE PHOSPHATASE 83 U/L (46-116); ANION GAP 17.6 mEq/L (7-13); ASPARTATE AMNIOTRANSFERASE,AST 13 U/L (15-37); BILIRUBIN TOTAL 0.7 mg/dL (0.2-1.0); BLOOD UREA NITROGEN,BUN 76 mg/dL (7-18); BUN/CREATININE RATIO 8.3 (No establ ref range); CARBON DIOXIDE,CO2 22 mmol/L (21-32); CHLORIDE,CL 106 mmol/L (98-107); GLUCOSE RANDOM 133 mg/dL (70-99); MAGNESIUM 1.9 mg/dL (1.8-2.4); POTASSIUM,K 4.6 mmol/L (3.5-5.1); PROTEIN TOTAL,TP 7.1 g/dL (6.4-8.2); SODIUM,NA 141 mmol/L (136-145)
[2024-11-19 10:19] LABS: A/G RATIO 0.82; CREATININE 9.15 mg/dL (0.70-1.30); ESTIMATED GFR 6 mL/min (>=60)
[2024-11-19 10:20] LABS: B-TYPE NATRIURETIC PEPTIDE,BNP 872 pg/ml (0-100)
[2024-11-19 10:34] VITALS: BP 139/73; PULSE 97
== END 2024-11-19 12:52 | disposition home or self-care (01) ==
LOC: DL.ED 09:06
DX: E11.22 Type 2 diabetes mellitus with diabetic chronic kidney disease (principal); I48.20 Chronic atrial fibrillation, unspecified; N18.30 Chronic kidney disease, stage 3 unspecified; K21.9 Gastro-esophageal reflux disease without esophagitis; I25.10 Atherosclerotic heart disease of native coronary artery without angina pectoris; J45.909 Unspecified asthma, uncomplicated; I10 Essential (primary) hypertension; M19.90 Unspecified osteoarthritis, unspecified site; E78.00 Pure hypercholesterolemia, unspecified; Z79.899 Other long term (current) drug therapy; Z79.82 Long term (current) use of aspirin; Z88.8 Allergy status to other drugs, medicaments and biological substances; Z86.16 Personal history of COVID-19; Z90.49 Acquired absence of other specified parts of digestive tract
CPT/HCPCS: 36415; 71045; 80053; 82947; 83735; 83880; 84484; 85025; 85610; 85730; 99285

== ENCOUNTER 2025-07-29 14:39 | Emergency (ER) | payer BC, OTHER ==
[2025-07-29 14:58] LABS: BASOPHILS PERCENT AUTO 0.4 % (0.0-1.0); EOSINOPHILS PERCENT AUTO 0.4 % (1.0-3.0); LYMPHOCYTES PERCENT AUTO 18.6 % (20.5-50.1); MONOCYTES PERCENT AUTO 20.0 % (2-8); NEUTROPHILS PERCENT AUTO 60.6 % (42.2-75.2); PLATELET COUNT,PLT 156 10^3/uL (150-450); RED BLOOD CELL COUNT 4.26 10^6/uL (4.6-6.2); WHITE BLOOD CELL COUNT,WBC 2.8 10^3/uL (5.0-10.0)
[2025-07-29 15:21] LABS: ALANINE AMINOTRANSFERASE,ALT 59.0 U/L (16-63); ASPARTATE AMNIOTRANSFERASE,AST 41.0 U/L (15-37); BILIRUBIN TOTAL 1.8 mg/dL (0.2-1.0); BLOOD UREA NITROGEN,BUN 15.0 mg/dL (7-18); CARBON DIOXIDE,CO2 28.0 mmol/L (21-32); CHLORIDE,CL 99.0 mmol/L (98-107); CREATININE 1.36 mg/dL (0.70-1.30); EST CRCL DRUG DOSING (CG) 86.12 mL/min; GLUCOSE RANDOM 178.0 mg/dL (70-99); LACTIC ACID 1.6 mmol/L (0.4-2.0); POTASSIUM,K 4.4 mmol/L (3.5-5.1); PROTEIN TOTAL,TP 7.0 g/dL (6.4-8.2); SODIUM,NA 133.0 mmol/L (136-145)
[2025-07-29 15:22] LABS: A/G RATIO 0.89; ESTIMATED GFR 63.0 mL/min (>=60)
[2025-07-29 15:42] LABS: APPEARANCE,URINE CLEAR (CLEAR); GLUCOSE,URINE NEGATIVE (NEGATIVE); OCCULT BLOOD,URINE NEGATIVE (NEGATIVE)
[2025-07-29 15:46] LABS: AMPHETAMINES,URINE NEGATIVE (NEGATIVE); BARBITURATES,URINE NEGATIVE (NEGATIVE); MDMA (ECSTASY), URINE NEGATIVE (NEGATIVE); METHAMPHETAMINES,URINE NEGATIVE (NEGATIVE); OPIATES,URINE NEGATIVE (NEGATIVE); OXYCODONE,URINE NEGATIVE (NEGATIVE); PHENCYCLIDINE,URINE NEGATIVE (NEGATIVE); TCA,URINE NEGATIVE (NEGATIVE)
[2025-07-29 16:17] VITALS: BP 119/67; PULSE 70
== END 2025-07-29 16:44 | disposition home or self-care (01) ==
LOC: DL.ED 14:39
DX: R07.89 Other chest pain (principal); I25.10 Atherosclerotic heart disease of native coronary artery without angina pectoris; E78.00 Pure hypercholesterolemia, unspecified; I10 Essential (primary) hypertension; J45.909 Unspecified asthma, uncomplicated; E11.9 Type 2 diabetes mellitus without complications; Z88.8 Allergy status to other drugs, medicaments and biological substances; Z79.82 Long term (current) use of aspirin; Z79.02 Long term (current) use of antithrombotics/antiplatelets; Z79.899 Other long term (current) drug therapy; Z79.4 Long term (current) use of insulin; Z95.1 Presence of aortocoronary bypass graft
CPT/HCPCS: 36415; 71045; 80053; 80305; 81003; 83605; 83735; 84484; 85025; 87086; 93010; 96374; 99284; 99285; J1920